=== PATIENT | male | born 1965 | race Caucasian/White ===

== ENCOUNTER 2021-08-30 11:53 | Inpatient (IN) ==
[2021-08-30] MEDS ORDERED: ALBUT/IPRATROP 3MG/0.5MG NEB 3 ML VIAL NEB STA (15:54)
[2021-08-30 16:06] LABS: Basophils # (auto) 0.01 K/uL (0-0.2); Basophils % (auto) 0.2 %; Hematocrit (blood only) 49.6 % (42-52); Hemoglobin 17.2 g/dL (14.0-18.0); Immature Granulocytes # (auto) 0.02 K/uL (0.00-0.02); Immature Granulocytes % (auto) 0.3 %; Lymphocytes # (auto) 0.92 K/uL (1.2-3.4); Lymphocytes % (auto) 15.5 %; Mean Corpuscular Hemoglobin 31.6 pg (25-34); Mean Corpuscular Hgb Conc 34.7 g/dL (32-36); Mean Platelet Volume 10.5 fL (7.4-10.4); Monocytes # (auto) 0.63 K/uL (0.11-0.59); Monocytes % (auto) 10.6 %; Neutrophils # (auto) 4.36 K/uL (1.4-6.5); Neutrophils % (auto) 73.4 %; Platelet Count 156 K/uL (130-400); RDW Coefficient of Variation 12.9 % (11.5-14.5); RDW Standard Deviation 43.1 fL (36.4-46.3); Red Blood Count 5.45 M/uL (4.7-6.1); White Blood Count 5.94 K/uL (4.8-10.8)
--- NOTE | 2021-08-30 16:19 | XRay Report ---
XR chest 1V portable CLINICAL HISTORY: Shortness of breath. Fever. COMPARISON STUDY: Chest radiograph July 10, 2015. FINDINGS: Lung volumes are diminished. There is elevation of the right hemidiaphragm. No pneumothorax or pleural effusion is noted. There is interstitial thickening and patchy bilateral airspace opaciti es. Cardiac size is at the upper limits of normal. There is no evidence for pulmonary edema. IMPRESSION: Patchy bilateral airspace opacities and interstitial thickening. The findings favor an i nfectious process such as viral pneumonia. Radiographic follow-up to ensure resolution is recommended . ACT 112: Negative or not required by law. Electronically signed by: Adis Duran M.D. 08/30/2021 4:18 PM
[2021-08-30 16:24] LABS: Alanine Aminotransferase 122 U/L (12-78); Albumin Level 3.7 gm/dl (3.4-5.0); Aspartate Aminotransferase 82 U/L (15-37); BUN Creatinine Ratio 14.1 (10-20); Blood Urea Nitrogen 17 mg/dl (7-18); Calcium 8.9 mg/dl (8.5-10.1); Carbon Dioxide 29 mmol/L (21-32); Chloride 97 mmol/L (98-107); Creatinine Clr Calc Pharmacy 90.5 ml/min; Est GFR (African American) 74.9 ml/min; Est GFR (Non-African American) 64.6 ml/min; Glucose 123 mg/dl (70-99); Potassium 3.7 mmol/L (3.5-5.1); Sodium 132 mmol/L (136-145)
[2021-08-30 16:28] LABS: Albumin Globulin Ratio 0.9 (0.9-2); Alkaline Phosphatase 61 U/L (45-117); Bilirubin,Total 0.9 mg/dl (0.2-1); Globulin 4.3 gm/dl (2.5-4.0); Troponin I < 0.015 ng/ml (0-0.045)
--- NOTE | 2021-08-30 16:40 | Emergency Department Note ---
Impression & Plan Acute hypoxemic respiratory failure due to COVID-19, Pneumonia due to 2019-nCoV ED Provider Note NAME: IAM WATSON AGE: 56 SEX: M : 1965 ARRIVES VIA: Walk-In INFORMANT: Patient, ED PROVIDER(S): Gregorio Wren MD Chief Complaint: Cough, fevers chills headache malaise HPI: Patient does present with the above complaints which he states began last week but seem to become progressively worse over the weekend and into this week. The patient has been try to take [id number] medications but without significant relief in symptoms. The patient will have significant coughing fits because of some chest discomfort. The patient denies any prior heart or lung history. The patient is not vaccinated for Covid or flu. The patient does not smoke. The patient denies any known sick contacts or recent travel. Patient denies any history of DVT or PE. Patient has had decreased taste. Patient has had decreased p.o. intake and does feel somewhat dehydrated. ROS: See HPI for pertinent positives and negatives. A total of 10 systems were reviewed and otherwise negative. Past medical history: See below Surgical history: See below Social history: See below Physical Exam: GENERAL: Fatigued in appearance. Wearing glasses and a mask. EYE EXAM: Normal conjunctiva. PERRL, no anisocoria and EOM's grossly intact w/o pain. NECK: Supple, no nuchal rigidity, no adenopathy, non-tender. No signs of meningismus. LUNGS: Clear to auscultation. Normal chest wall mechanics. HEART: NSR, no MRG. ABDOMEN: Abdomen soft, non-tender, normo-active bowel sounds, no masses, no rebound or guarding. BACK: No CVA TTP. SKIN: No rashes and no bruising. UPPER EXTREMITIES: Upper extremities are grossly normal. LOWER EXTREMITIES: Grossly normal, no edema. NEURO EXAM: A&O x3, cranial nerves II-XII grossly intact, normal speech, moves all 4 extremities on command w/o issue. Differential diagnoses: Reactive airway disease, pneumonia, pneumothorax, COPD, CHF, infections, cardiac ischemia, pulmonary embolism, musculoskeletal, gastrointestinal, as well as other pathologies. Course: Patient was seen and evaluated the bedside. Full history physical exam was performed. EKG interpreted by me Normal sinus rhythm, rate of 74, normal intervals, normal axis, no ST changes or T WI. Imaging Studies: See Below Cardiac monitoring: An order was placed for continuous cardiac monitoring. The monitor shows a rate of 75 with sinus rhythm. MDM: Patient did present due to concern for shortness of breath and likely infectious symptoms. Patient has no signs or stigmata DVT on exam. Blood work was obtained along with an EKG and chest x-ray. EKG with no obvious ischemia. Troponin is negative. Chest x-ray does show likely Bilateral airspace opacities consistent with a viral type pneumonia. Patient is Covid positive. The patient did receive a DuoNeb treatment. Upon reassessment the patient was satting in the high 80s. Patient was ordered dexamethasone. I did speak the on-call hospitalist Dr. Spence. The patient's monoclonal antibody was canceled given the pending inpatient treatment. Of note the patient was seen in the C sub wait and not in a formal emergency department room due to the burden upon the department which did not have any available rooms at the time that I saw the patient. Past Med/Surg History Medical History Dental caries Generalized weakness Hyperbilirubinemia Surgical History No pertinent past surgical history Social History Smoking Status: Never smoker Preferred Language: Israeli Feels Safe at Home: Yes Immunizations: Not vaccinated for COVID-19 Allergies Allergies Allergy/AdvReac Type Severity Reaction Status Date / Time No Known Allergies Allergy Unverified 08/28/15 15:03 Results & Data (ED) Vital Signs Vital Signs - 24 hr 08/30/21 12:31 08/30/21 15:53 Temperature 37.1 C Temperature Source Oral Pulse Rate 81 Pulse Rhythm [Right Finger] Regular Pulse Strength [Right Finger] Normal Respiratory Rate 18 20 Respiratory Effort / Characteristics Non-Labored Respiratory Depth Normal Respiratory Pattern Regular Blood Pressure 147/97 H Blood Pressure [Left Arm] 155/84 H Blood Pressure Mean 113 Blood Pressure Mean [Left Arm] 107 Blood Pressure Position [Left Arm] Sitting Pulse Oximetry 91 90 Oxygen Delivery Method Room Air Room Air Sepsis Recent Fever Within 48 Hours No Sepsis New/Unexplained Change in Mental Status No Sepsis Action Taken by Nursing No Action Required Home Medications Current Medication List: was personally reviewed by me Laboratory Data Attestation: I reviewed the patient's lab results. Result diagrams: 08/30/21 15:52 08/30/21 15:52 Lab Results 08/30/21 08/30/21 08/30/21 Range/Units 15:52 15:52 15:52 WBC 5.94 (4.8-10.8) K/uL RBC 5.45 (4.7-6.1) M/uL Hgb 17.2 (14.0-18.0) g/dL Hct 49.6 (42-52) % MCV 91.0 (80-100) fL MCH 31.6 (25-34) pg MCHC 34.7 (32-36) g/dL RDW Std Deviation 43.1 (36.4-46.3) fL RDW Coeff of Scooby 12.9 (11.5-14.5) % Plt Count 156 (130-400) K/uL MPV 10.5 H (7.4-10.4) fL Immature Gran % (Auto) 0.3 % Neut % (Auto) 73.4 % Lymph % (Auto) 15.5 % Glascock % (Auto) 10.6 % Eos % (Auto) 0.0 % Baso % (Auto) 0.2 % Neut # (Auto) 4.36 (1.4-6.5) K/uL Lymph # (Auto) 0.92 L (1.2-3.4) K/uL Glascock # (Auto) 0.63 H (0.11-0.59) K/uL Eos # (Auto) 0.00 (0-0.5) K/uL Baso # (Auto) 0.01 (0-0.2) K/uL Immature Gran # (Auto) 0.02 (0.00-0.02) K/uL Sodium 132 L (136-145) mmol/L Potassium 3.7 (3.5-5.1) mmol/L Chloride 97 L (98-107) mmol/L Carbon Dioxide 29 (21-32) mmol/L Anion Gap 6.0 (3-11) BUN 17 (7-18) mg/dl Creatinine 1.24 (0.6-1.4) mg/dl Est Cr Clr Drug Dosing 90.5 ml/min Est GFR ( Amer) 74.9 ml/min Est GFR (Non-Af Amer) 64.6 ml/min BUN/Creatinine Ratio 14.1 (10-20) Glucose 123 H (70-99) mg/dl Calcium 8.9 (8.5-10.1) mg/dl Total Bilirubin 0.9 (0.2-1) mg/dl AST 82 H (15-37) U/L ALT 122 H (12-78) U/L Alkaline Phosphatase 61 (45-117) U/L Troponin I < 0.015 (0-0.045) ng/ml Total Protein 8.0 (6.4-8.2) gm/dl Albumin 3.7 (3.4-5.0) gm/dl Globulin 4.3 H (2.5-4.0) gm/dl Albumin/Globulin Ratio 0.9 (0.9-2) SARS-CoV-2, RNA, NAAT POSITIVE A* (NEGATIVE) Administered Medications Discontinued Medications Albuterol (Albut/Ipratrop 3mg/0.5mg Neb 3 Ml Vial) 3 ml NEB NOW STA Stop: 08/30/21 15:55 Last Admin: 08/30/21 16:03 Dose: 3 ml Documented by: [id number] Imaging Data Radiologist's Impression: Chest X-Ray 08/30/21 15:43 XR chest 1V portable CLINICAL HISTORY: Shortness of breath. Fever. COMPARISON STUDY: Chest radiograph July 10, 2015. FINDINGS: Lung volumes are diminished. There is elevation of the right hemidiaphragm. No pneumothorax or pleural effusion is noted. There is interstitial thickening and patchy bilateral airspace opacities. Cardiac size is at the upper limits of normal. There is no evidence for pulmonary edema. IMPRESSION: Patchy bilateral airspace opacities and interstitial thickening. The findings favor an infectious process such as viral pneumonia. Radiographic follow-up to ensure resolution is recommended. ACT 112: Negative or not required by law. Electronically signed by: Adis Duran M.D. 08/30/2021 4:18 PM Discharge Plan Visit Data Chief Complaint: Fever Stated Complaint: COVID SYMPTOMS, FEVER ED Provider: Gregorio Wren Discharge Problem: Acute hypoxemic respiratory failure due to COVID-19, Pneumonia due to 2019-nCoV Patient Disposition: Admitted As Inpatient Referrals Referrals: Tonie Mohan DO [Primary Care Provider] -
[2021-08-30] MEDS ORDERED: diphenhydrAMINE 50 MG/ML VIAL IV PRN (16:41)
[2021-08-30] MEDS ORDERED: ONDANSETRON INJ 2 MG/ML 2 ML VIAL IV PRN (16:41)
[2021-08-30] MEDS ORDERED: ACETAMINOPHEN 325 MG TAB PO PRN (16:41)
[2021-08-30] MEDS ORDERED: methylPREDNISolone 125 MG/2 ML VIAL IV PRN (16:41)
[2021-08-30] MEDS ORDERED: EPINEPHrine INJ 1 MG/ML AMP IM PRN (16:41)
[2021-08-30] MEDS ORDERED: SODIUM CHLORIDE 0.9% 1000ML 1,000 ML IV ONE (16:41)
[2021-08-30] MEDS ORDERED: STAT IV STA (16:41)
[2021-08-30] MEDS ORDERED: CASIRIVIMAB/IMDEVIMAB 1,200 MG in 0.9 % SODIUM CHLORIDE 100 ML IV ONE (16:56)
[2021-08-30] MEDS ORDERED: SODIUM CHLORIDE 0.9% 10ML FLUSH IV ONE (17:11)
[2021-08-30] MEDS ORDERED: 0.2 MICRON FILTER SET 1 EA IV ONE (17:11)
[2021-08-30] MEDS ORDERED: dexAMETHasone**PF** 10 MG/ML VIAL IV SCH (18:03)
[2021-08-30] MEDS ORDERED: dexAMETHasone**PF** 10 MG/ML VIAL IV ONE (18:03)
--- NOTE | 2021-08-30 19:32 | History & Physical Report ---
Date of Service August 30, 2021 Assessment & Plan (1) Acute hypoxemic respiratory failure due to COVID-19: Plan: Patient will be admitted to [facility] for COVID 19 Patient received monoclonal antibodies by the ER. Patient will be placed on remdesevir/dexamethasone. will check CRP in AM. Patient is on 2 liters nasal cannula placed on lovenox. History of Present Illness Primary Care Provider: Tonie Mohan DO 56 yo male reports feeling symptoms after returning from[place] dinner. Patient reports that he has informed of the guests of the dinner that he likely had COVID 19. Patient reports loss of taste and smell. Patient reports progressively getting more SOB. Allergies Allergy/AdvReac Type Severity Reaction Status Date / Time levofloxacin [From Levaquin] AdvReac Intermediate BAD Verified 08/30/21 21:04 HEADACHE Home Medications Medication Instructions Recorded Confirmed Type No Known Home Medications 08/30/21 08/30/21 History Past Med/Surg History Medical History Dental caries Generalized weakness Hyperbilirubinemia Surgical History No pertinent past surgical history Social History Smoking Status: Never smoker Preferred Language: Korean Feels Safe at Home: Yes Review of Systems Constitutional: + fever, + sweats and + body aches Eyes: no blind spots Ear, Nose, Mouth, Throat: no ear pain and no tinnitus Respiratory: + cough and + dyspnea Cardiovascular: no chest pain Gastrointestinal: no abdominal pain and no bloating Genitourinary: no dysuria Musculoskeletal: no back pain Integumentary: no acne Neurologic: no gait abnormality Psychiatric: no behavioral changes Endocrine: + fatigue Hematologic / Lymphatic: no easy bleeding Allergy / Immunological: no GI upset with certain foods and no lip swelling Physical Exam Constitutional: WD/WN, vitals as above Eyes: PERRL, conjunctivae normal, anicteric sclerae ENMT: external ear and nose normal, oropharynx normal Neck: trachea midline, no thyromegaly Respiratory: normal respiratory effort, lungs clear to auscultation Cardiovascular: RRR, no murmur, no edema Gastrointestinal (Abdomen): normal bowel sounds, soft, nontender, no hepa tosplenomegaly Skin: no rashes, warm and dry Neurologic: PERRL, EOMI, accommodation nl, no face palsy, no dysarthria Psychiatric: A+Ox3, euthymic affect Lymphatic: no cervical or axillary lymphadenopathy Results & Data Results & Data ([facility] [place]) Vital Signs (Past 12 Hours) Vital Signs Temp Pulse Resp BP BP Pulse Ox 08/30/21 15:53 20 155/84 H 90 08/30/21 12:31 37.1 C 81 18 147/97 H 91 PG Care Time/CCT Total # of Minutes Spent Total Time Spent with Patient: Total time spent is greater than 50% in coordination of care (as documented) at patient's floor/unit and/or counseling patient: Coding Level of Care Code 94086 Initial Inpt Care Lvl 3 Diagnoses Acute hypoxemic respiratory failure due to COVID-19 U07.1; J96.01
[2021-08-30] MEDS ORDERED: ENOXAPARIN 0.5 MG/KG SQ SCH (23:45)
[2021-08-31] MEDS ORDERED: REMDESIVIR 200 MG in SODIUM CHLORIDE 0.9% 210 ML IV ONE
[2021-08-31] MEDS: ENOXAPARIN 80 MG/0.8 ML SYR SQ SCH ×3 (00:05→21:21)
[2021-08-31] MEDS: SODIUM CHLORIDE 0.9% 10ML FLUSH IV SCH ×2 (02:32→21:46)
[2021-08-31 06:13] LABS: Hematocrit (blood only) 44.2 % (42-52); Hemoglobin 15.2 g/dL (14.0-18.0); Mean Corpuscular Hemoglobin 31.1 pg (25-34); Mean Corpuscular Hgb Conc 34.4 g/dL (32-36); Mean Corpuscular Volume 90.4 fL (80-100); Mean Platelet Volume 10.6 fL (7.4-10.4); Platelet Count 164 K/uL (130-400); RDW Coefficient of Variation 12.9 % (11.5-14.5); RDW Standard Deviation 42.4 fL (36.4-46.3); Red Blood Count 4.89 M/uL (4.7-6.1); White Blood Count 4.95 K/uL (4.8-10.8)
[2021-08-31 06:46] LABS: Albumin Level 2.9 gm/dl (3.4-5.0); BUN Creatinine Ratio 15.7 (10-20); Bilirubin Direct 0.2 mg/dl (0-0.2); Calcium 8.2 mg/dl (8.5-10.1); Creatinine Clr Calc Pharmacy 103.9 ml/min; Est GFR (African American) 88.5 ml/min; Est GFR (Non-African American) 76.3 ml/min; Potassium 3.7 mmol/L (3.5-5.1)
[2021-08-31 06:50] LABS: Bilirubin,Total 0.7 mg/dl (0.2-1); C Reactive Protein 1.65 mg/dl (0-0.29); Total Protein 6.8 gm/dl (6.4-8.2)
[2021-08-31] MEDS: dexAMETHasone 6 MG in SYRINGE 0 ML IV SCH (08:44)
--- NOTE | 2021-08-31 10:24 | Electrocardiogram Report ---
Test Reason : Blood Pressure : / mmHG Vent. Rate : 074 BPM Atrial Rate : 074 BPM P-R Int : 174 ms QRS Dur : 084 ms QT Int : 362 ms P-R-T Axes : 029 017 036 degrees QTc Int : 401 ms Normal sinus rhythm Normal ECG When compared with ECG of 29-JUN-2015 18:55, No significant change was found Confirmed by Jorge A Mchugh ([id number]) on 08/31/2021 10:24:02 AM Referred By: REFERRED SELF Confirmed By:Kvng Mchugh
--- NOTE | 2021-08-31 14:17 | Hospitalist Progress Note ---
Date of Service August 31, 2021 Assessment & Plan (1) Acute hypoxemic respiratory failure due to COVID-19: Plan: Patient will be admitted to [facility] for COVID 19 Patient did not receive monoclonal antibodies by the ER. Patient will be placed on remdesevir/dexamethasone. will check CRP in AM. Patient is on 2 liters nasal cannula placed on lovenox. On 08/31 Patient is now on 6 liters. recommend proning Later in the day, patient became more hypoxic and had to be transisitioned to high flow oxygen. (2) Pneumonia due to 2019-nCoV: Plan: as above, Admission and Anticipated Discharge Date Admission Date: August 30, 2021 Subjective Patient reports feeling comfortable in bed. He has not proned, but reports he will try. He states that he feels more SOB when he walks towards the bathroom. This was accomapnied by a nonproductive cough. Review of Systems Review of Systems: All systems reviewed & are unremarkable except as noted in HPI & below Physical Exam Constitutional: WD/WN, vitals as above Eyes: PERRL, conjunctivae normal, anicteric sclerae ENMT: external ear and nose normal, oropharynx normal Neck: trachea midline, no thyromegaly Respiratory: normal respiratory effort, lungs clear to auscultation Cardiovascular: RRR, no murmur, no edema Gastrointestinal (Abdomen): normal bowel sounds, soft, nontender, no hepatosplenomegaly Skin: no rashes, warm and dry Neurologic: PERRL, EOMI, accommodation nl, no face palsy, no dysarthria Psychiatric: A+Ox3, euthymic affect Lymphatic: no cervical or axillary lymphadenopathy Results & Data Results & Data ([facility]) Vital Signs (Past 12 Hours) Vital Signs Pulse Resp BP Pulse Ox 08/31/21 10:52 68 20 110/65 91 08/31/21 06:30 68 26 H 140/78 90 08/31/21 03:00 72 32 H 121/75 92 PG Care Time/CCT Total # of Minutes Spent Total Time Spent with Patient: Total time spent is greater than 50% in coordination of care (as documented) at patient's floor/unit and/or counseling patient: Coding Level of Care Code 40025 Subseq Hosp Care Lvl 3 Diagnoses Acute hypoxemic respiratory failure due to COVID-19 U07.1; J96.01 Pneumonia due to 2019-nCoV U07.1; J12.82 Time Spent (min) 36
[2021-08-31] MEDS: REMDESIVIR 100 MG in SODIUM CHLORIDE 0.9% 230 ML IV SCH (20:14)
[2021-09-01] MEDS: dexAMETHasone 6 MG in SYRINGE 0 ML IV SCH (08:43)
[2021-09-01] MEDS: ENOXAPARIN 80 MG/0.8 ML SYR SQ SCH ×2 (09:48→20:30)
[2021-09-01 10:22] LABS: Hemoglobin 15.1 g/dL (14.0-18.0); Mean Corpuscular Hgb Conc 33.6 g/dL (32-36); Mean Corpuscular Volume 92.4 fL (80-100); Mean Platelet Volume 10.7 fL (7.4-10.4); Platelet Count 204 K/uL (130-400); RDW Coefficient of Variation 12.9 % (11.5-14.5); RDW Standard Deviation 43.6 fL (36.4-46.3); Red Blood Count 4.87 M/uL (4.7-6.1); White Blood Count 9.09 K/uL (4.8-10.8)
[2021-09-01 10:50] LABS: BUN Creatinine Ratio 20.7 (10-20); C Reactive Protein 0.73 mg/dl (0-0.29); Calcium 8.5 mg/dl (8.5-10.1); Creatinine Clr Calc Pharmacy 99.3 ml/min; Est GFR (African American) 83.8 ml/min; Est GFR (Non-African American) 72.3 ml/min; Potassium 3.9 mmol/L (3.5-5.1)
--- NOTE | 2021-09-01 15:23 | Hospitalist Progress Note ---
Date of Service September 01, 2021 Assessment & Plan (1) Acute hypoxemic respiratory failure due to COVID-19: Plan: Acute anoxic respiratory failure 2/2 COVID-19 Tolerating proning Increased requirements to high flow, currently at 50 L WBC normal, hemoglobin normal, platelet count normal, troponin negative CXR: Patchy bilateral airspace opacities and interstitial thickening consistent with viral pneumonia CRP downtrending, does not meet criteria for baricitinib Continue dexamethasone 6 mg daily, Continue remdesivir started 08/31 AST 80, ALT 99 Continue weight-based Lovenox DVT prophylaxis Continue to follow No chronic home medications (2) Pneumonia due to 2019-nCoV: Plan: as above, Admission and Anticipated Discharge Date Admission Date: August 30, 2021 Subjective Patient lying in bed, no acute distress. Reports he feels somewhat comfortable, but remains on high flow nasal cannula. Tolerating proning intermittently. Short of breath with ambulation. Increase to high flow nasal cannula yesterday. Continues to require. Was admitted on remdesivir/dexamethasone.CRP 0.73, downtrending. Review of Systems Review of Systems: 10 point review systems negative except as previously noted and as documented in HPI Physical Exam Physical Exam: General: A&Ox3. NAD. Cooperative. HEENT: Atraumatic, normocephalic. Pulm: Moderate air movement, diffuse scattered crackles without rales or wheezes. Cardiac: RRR, -mrg. Radial pulses intact and symmetrical. Abdominal: Nontender, nondistended, soft. BS present. Results & Data Results & Data ([facility]) Vital Signs (Past 12 Hours) Vital Signs Temp Pulse Pulse Resp BP Pulse Ox 09/01/21 14:31 68 20 90 09/01/21 11:26 37.5 C 63 20 116/72 89 L 09/01/21 11:05 62 22 91 09/01/21 08:45 59 L 09/01/21 08:26 37.7 C H 60 20 119/71 91 09/01/21 07:45 84 26 H 89 L 09/01/21 03:51 37.3 C 60 19 91 PG Care Time/CCT Total # of Minutes Spent Total Time Spent with Patient: Total time spent is greater than 50% in coordination of care (as documented) at patient's floor/unit and/or counseling patient: Coding Level of Care Code 28792 Subseq Hosp Care Lvl 3 Diagnoses Acute hypoxemic respiratory failure due to COVID-19 U07.1; J96.01 Pneumonia due to 2019-nCoV U07.1; J12.82
[2021-09-01] MEDS: REMDESIVIR 100 MG in SODIUM CHLORIDE 0.9% 230 ML IV SCH (19:36)
[2021-09-01] MEDS: SODIUM CHLORIDE 0.9% 10ML FLUSH IV SCH (20:28)
[2021-09-02] MEDS ORDERED: COUGH DROP (SUGAR FREE) LOZ 24 LOZ/1 BOX BUCCAL PRN (03:01)
[2021-09-02] MEDS ORDERED: COUGH DROP (SUGAR FREE) LOZ 24 LOZ/1 BOX BUCCAL ONE (03:04)
[2021-09-02] MEDS: dexAMETHasone 6 MG in SYRINGE 0 ML IV SCH (08:27)
[2021-09-02] MEDS: ENOXAPARIN 80 MG/0.8 ML SYR SQ SCH ×2 (08:28→20:09)
[2021-09-02] MEDS ORDERED: SODIUM CHLORIDE 0.65% NA SOLN 45 ML (OCEAN) PRN (08:34)
[2021-09-02] MEDS ORDERED: SODIUM CHLORIDE 0.65% NA SOLN 45 ML (OCEAN) ONE (08:39)
[2021-09-02] MEDS ORDERED: FUROSEMIDE 40 MG/4 ML VIAL IV ONE (10:32)
--- NOTE | 2021-09-02 10:37 | Hospitalist Progress Note ---
Date of Service September 02, 2021 Assessment & Plan (1) Acute hypoxemic respiratory failure due to COVID-19: Plan: Worsening Acute hypoxic respiratory failure 2/2 COVID-19 -patient with progressively worsening oxygenation, throughout morning has required up titration of high flow nasal cannula to 60 L at 100%, ultimately progressing to CPAP 10mm maintaining sat of approximately 88%. Patient had been somewhat compliant with proning, continue to be hypoxic following movement to PCU status and CPAP. Extended discussion with patient regarding course and wishes, patient reports he would want a breathing tube/intubation if needed. If he is unable to make decisions for himself he would want his brother Orion Rutledge available at [phone] to be surrogate decision maker. He would also like his business support assistant Alvarez Saucedo updated at [phone], permission is given to relay medical information and updates to these contacts. Remains tachypneic, anticipate need for ETT, critical care team notified and aware - Unvaccinated -Continue Lasix 40mg IV. Creatinine remains normal. WBC normal, hemoglobin normal, platelet count normal, troponin negative ABG 7.49, PCO2 35, PO2 63 on 50 L at 100%, HCO3 26 CXR: Patchy bilateral airspace opacities and interstitial thickening consistent with viral pneumonia on admit - Repeat CXR: With progressive patchy opacities consistent with worsening viral pneumonia. CVA without opacity. CRP previously downtrending, did not meet criteria for baricitinib. CRP remains less than 1 Decadron increased from 6 mg daily to 10 mg daily Continue remdesivir started 08/31 AST 80, ALT 99 following initiation of remdesivir. Repeat up trended to 109/167. <3x ULN. - Pt on weight based COVID DVT ppx without missed/refused doses No chronic home medications. Pt denies any chronic medical hx/problems/cardiac disease/pulmonary disease/DM (2) Pneumonia due to 2019-nCoV: Plan: as above, Admission and Anticipated Discharge Date Admission Date: August 30, 2021 Subjective Progressive dyspnea/hypoxia. Pt laying on back at assessment. Proned. Pt with hypoxia on 100%FiO2 HFNC @ 50. Moving to 2E unit, capacity up to 60L. Lasix IVx given. Sx onset ~10 days ago. Nonvacc. Reports he continues to be short of breath and feel lightheaded/dizzy all of which is worsened with exertion. Denies chest pain, chest pressure, extremity pain, abdominal pain, nausea/vomiting. Discussed worsening Covid, patient would want a breathing tube if his breathing would continue to worsen. Pt would like the followin gabepdated in an emergency. OK per pt to share information with the following. Brother orion would be surrogate decision maker. Lorne Saucedo [phone] ([employer]) and Brother Orion Rutledge [phone]. Review of Systems Review of Systems: Patient endorses shortness of breath worsened with exertion. 10 point review of systems otherwise negative except as noted otherwise/in subjective. Physical Exam Physical Exam: General: A&Ox3. NAD. Cooperative. HEENT: Atraumatic, normocephalic. Visual acuity and hearing grossly intact. Pulm: Tachypneic. Diffusely coarse, without rales. Increased work of breathing. Cardiac: RRR, -mrg. Radial pulses intact and symmetrical. Abdominal: Obese, nontender, nondistended, soft. BS present. Extremities: Warm, moist. Moving all extremities equally. Results & Data Results & Data ([facility]) Vital Signs (Past 12 Hours) Vital Signs Temp Pulse Pulse Resp BP Pulse Ox 09/02/21 10:17 71 22 87 L 09/02/21 09:27 69 129/75 86 L 09/02/21 08:13 36.8 C 65 22 121/75 88 L 09/02/21 07:52 93 H 20 87 L 09/02/21 07:40 61 09/02/21 05:20 62 22 86 L 09/02/21 03:46 112 H 30 H 89 L 09/02/21 03:07 37.6 C H 62 18 116/85 87 L 09/02/21 00:29 68 20 89 L 09/02/21 00:25 62 09/01/21 23:28 37.4 C 63 18 110/67 88 L PG Care Time/CCT Total # of Minutes Spent Total Time Spent with Patient: Total time spent is greater than 50% in coordination of care (as documented) at patient's floor/unit and/or counseling patient: Coding Level of Care Code 26336 Subseq Hosp Care Lvl 3 Diagnoses Acute hypoxemic respiratory failure due to COVID-19 U07.1; J96.01 Pneumonia due to 2019-nCoV U07.1; J12.82
[2021-09-02] MEDS ORDERED: dexAMETHasone 4 MG in SYRINGE 0 ML IV ONE (11:15)
[2021-09-02 11:58] LABS: Creatinine Clr Calc Pharmacy 124.6 ml/min; Est GFR (African American) 110.3 ml/min; Est GFR (Non-African American) 95.1 ml/min
[2021-09-02 12:17] LABS: Allen Test Pos (Pos); Base Excess ABG 3.1 mEq/L (-9-1.8); HCO3 ABG 26 mmol/L (19-24); PCO2 ABG 35 mmHg (35-46); PO2 ABG 63 mmHg (80-95); pH ABG 7.49 (7.35-7.45)
--- NOTE | 2021-09-02 12:22 | XRay Report ---
XR chest 1V portable CLINICAL HISTORY: progressive hypoxia COMPARISON STUDY: Chest radiograph August 30, 2021. FINDINGS: Elevation of the right hemidiaphragm is again noted. Lung volumes are diminished. There has been progression of bilateral airspace opacities since prior examination. These are most confluent w ithin the right upper and left lower lungs. There is no evidence for pulmonary edema. IMPRESSION: Progression of bilateral airspace opacities consistent with viral pneumonia. ACT 112: Negative or not required by law. Electronically signed by: Adis Duran M.D. 09/02/2021 12:21 PM
[2021-09-02] MEDS: REMDESIVIR 100 MG in SODIUM CHLORIDE 0.9% 230 ML IV SCH (20:09)
[2021-09-02] MEDS: SODIUM CHLORIDE 0.9% 10ML FLUSH IV SCH (20:09)
[2021-09-03 06:57] LABS: Creatinine Clr Calc Pharmacy 118.1 ml/min; Est GFR (African American) 103.3 ml/min; Est GFR (Non-African American) 89.1 ml/min
[2021-09-03] MEDS: ENOXAPARIN 80 MG/0.8 ML SYR SQ SCH ×2 (07:54→19:28)
[2021-09-03] MEDS ORDERED: dexAMETHasone 10 MG in SYRINGE 0 ML IV SCH (09:00)
[2021-09-03] MEDS ORDERED: FUROSEMIDE INJ 20 MG/2 ML VIAL IV ONE (09:35)
[2021-09-03] MEDS ORDERED: PROPOFOL IV EMULSION 10 MG/ML 20 ML VIAL IV ONE (09:52)
[2021-09-03] MEDS ORDERED: ROCURONIUM BROMIDE 10 MG/ML 5 ML VIAL IV ONE ×2 (09:52→09:56)
[2021-09-03] MEDS ORDERED: MIDAZOLAM HCL 5 MG/ML VIAL ONE (09:53)
[2021-09-03] MEDS ORDERED: PROPOFOL IV EMULSION 10 MG/ML 100 ML VIAL IV ONE (09:59)
[2021-09-03] MEDS ORDERED: STAT IV Infusion **Titration per Protocol STA ×2 (11:03→11:06)
[2021-09-03] MEDS ORDERED: PROPOFOL BOLUS FROM BAG IV PRN (11:03)
[2021-09-03] MEDS ORDERED: MIDAZOLAM BOLUS FROM BAG IV PRN (11:03)
[2021-09-03] MEDS ORDERED: CISATRACURIUM BESYLATE IV SOLN 2 MG/ML 10 ML VIAL IV STA (11:06)
[2021-09-03] MEDS: MIDAZOLAM HCL 125 MG/250 ML BAG IV SCH (11:26)
[2021-09-03] MEDS: fentaNYL DRIP 1,250 MCG/250 ML BAG IV SCH (11:26)
[2021-09-03] MEDS: propofoL 1,000 MG/100 ML VIAL IV SCH ×5 (11:26→23:09)
[2021-09-03] MEDS: ARTIFICIAL TEARS OP OINT 3.5 GM TUBE OP SCH ×4 (11:29→23:09)
--- NOTE | 2021-09-03 11:33 | XRay Report ---
XR chest 1V portable CLINICAL HISTORY: intubation, central line, Og tube placement. COMPARISON STUDY: No previous studies for comparison. TECHNIQUE: 09/02/2021 FINDINGS: Single frontal view of the chest demonstrates the cardiomediastinal silhouette to be within normal li mits. As been interval placement of an endotracheal tube with its tip approximately 7.1 cm above the flaca. Just below the thoracic inlet and probably should be advanced at least 2 cm. Right jugular ca theter is in place with its tip in the distal SVC. There is no evidence for pneumothorax. OG tube has been placed with its tip extending into the gastric fundus. Compared to the previous examination, bilateral interstitial and alveolar opacities are again seen ch aracteristic of a viral type pneumonitis and probable Covid pneumonia. There is no evidence for pleur al effusion. There is no evidence for vascular congestion. There is no acute osseous pathology. IMPRESSION: 1. Tip of endotracheal tube 7.1 cm above the flaca and should probably be advanced at least 2 cm. 2. Tip of right jugular catheter in right atrium with no evidence for pneumothorax. 3. Tip of OG tube extends into the gastric fundus and could also be advanced further. 4. Bilateral interstitial and alveolar opacities are again seen characteristic of viral type pneumoni tis and Covid pneumonia. ACT 112: Negative or not required by law. Electronically signed by: Aron Felix M.D. 09/03/2021 11:31 AM
--- NOTE | 2021-09-03 11:40 | Critical Care Consultation ---
Date of Consultation September 03, 2021 Assessment & Plan (1) Acute hypoxemic respiratory failure due to COVID-19: (2) Pneumonia due to 2019-nCoV: (3) ARDS (adult respiratory distress syndrome): Impression: 56-year-old unvaccinated male with rapidly progressive COVID- 19 pneumonitis/ARDS. Intubated 09/03/2021. Recommendations: 1. Neuro: [place] aggressive sedation protocol with fentanyl Versed and propofol. Neuromuscular blockade for now. 2. Cardiovascular: Hemodynamically stable. Will use norepinephrine on an as- needed basis to maintain systolic blood pressures with sedation 3. Pulmonary: ARDS secondary to novel coronavirus. Failed high flow and noninvasive positive pressure ventilation now intubated. Arginate ventilatory strategy. Neuromuscular blockade for now. Will obtain CT angiogram to exclude PE given that his degree of hypoxemia appears to be out of proportion to the findings on his x-ray. We will check a BNP as well as procalcitonin and respiratory sputum culture. Patient's body mass index and age would likely exclude him for ECMO. Facilities do not have beds available so will defer contacting tertiary facilities as I think they will have little to offer him at this point time. May benefit from proning but will await CT scan prior to making a decision. 4. GI: N.p.o. for now. GI prophylaxis. 5. Renal: Dasilva catheter in place. Await repeat electrolytes post intubation. 6. ID: Afebrile. Continue dexamethasone 6 mg daily for Covid. At risk for secondary infections 7. Endocrine: Glycemic control per ICU protocol 8. Heme-onc: Follow-up lab studies pending. 50 minutes critical care time spent evaluating and managing life-threatening illness including discussions with anesthesia, bedside critical care nurse, and patient as well as primary admitting service. No family is immediately available and will defer to hospitalist service to update them. History of Present Illness Attending Physician: David Dunn MD History of Present Illness Asked by hospitalist to assist in evaluation management this patient with progressive hypoxemic respiratory failure secondary to Covid pneumonitis. History is obtained from reviewed electronic medical record as well as discussion with the patient. Patient is a 56-year-old nonvaccinated male who presented to the emergency room 08/30/2021 with complaints of shortness of breath. He was found to be hypoxemic and was placed on 2 L nasal cannula. He was treated with dexamethasone remdesivir. His oxygenation worsened over the next 24 hours transitioning to high flow and then eventually trying self proning. He was then transitioned to BiPAP. This morning we were unable to keep his oxygen saturations above 88% despite aggressive therapy and the patient was tachypneic with increased work of breathing. I met with the patient at bedside. We discussed intubation tracheostomy and PEG tube placement. He is agreeable to proceed. His CRP was never elevated enough to qualify for additional immune suppression. Procalcitonin or BMP were not assessed. Allergies Allergy/AdvReac Type Severity Reaction Status Date / Time levofloxacin [From Levaquin] AdvReac Intermediate BAD Verified 08/30/21 21:04 HEADACHE Home Medications Medication Instructions Recorded Confirmed Type No Known Home Medications 08/30/21 08/30/21 History Patient History Medical History Dental caries Generalized weakness Hyperbilirubinemia Surgical History No pertinent past surgical history Social History Smoking Status: Never smoker Second Hand Exposure: No; Do You Dip or Chew Tobacco: No; Tobacco Cessation Education Requested by Patient: No Hx Alcohol Use: No Hx Substance Use: No Preferred Language: Zambian Communication Ability: Effective Site Leader Required: No Beliefs That Will Affect Care: None Current Living Situation: Alone Other Information That Helps Us Care for You: No Feels Safe at Home: Yes Safety Concerns: Feels Safe At This Time Assistive Devices: Oxygen - Continuous Review of Systems Review of Systems: Unable to complete full review of systems secondary to acuity of the patient's illness. Physical Exam Constitutional: + acute distress and + ill appearing Neck: trachea midline, no thyromegaly Respiratory: + respiratory distress, + labored breathing, + uses accessory muscles and + tachypneic Auscultation: + crackles and + wheezes Cardiovascular: RRR, no murmur, no edema Gastrointestinal (Abdomen): normal bowel sounds, soft, nontender, no hepatosplenomegaly Musculoskeletal: Extremities: extremities normal to inspection Skin: no rashes, warm and dry Neurologic: Nonfocal exam Lymphatic: no cervical lymphadenopathy Results & Data Results & Data ([facility]) Vital Signs (Past 12 Hours) Vital Signs Temp Pulse Pulse Resp BP BP Pulse Ox 09/03/21 07:55 77 28 H 136/81 85 L 09/03/21 03:45 72 33 H 90 09/03/21 03:36 36.7 C 72 32 H 120/78 88 L 09/02/21 23:38 36.6 C 70 22 134/83 89 L Critical Care Results & Data Vital Signs (Past 12 Hours) Vital Signs Temp Pulse Pulse Resp BP BP Pulse Ox 09/03/21 07:55 77 28 H 136/81 85 L 09/03/21 03:45 72 33 H 90 09/03/21 03:36 36.7 C 72 32 H 120/78 88 L 09/02/21 23:38 36.6 C 70 22 134/83 89 L Lab & Micro Results (Past 24 Hours) No Data to Display Creatinine 0.95 mg/dl (0.6-1.4) 09/03/21 Estimated GFR ( Amer) 103.3 ml/min 09/03/21 Estimated GFR (Non-Af Amer) 89.1 ml/min 09/03/21 AST 102 U/L (15-37) H 09/03/21 ALT 175 (12-78) H 09/03/21 Blood Gas Barometric Pressure 738.1 mm/Hg 09/02/21 11:55 09/02/21 Arterial Blood pH 7.49 (7.35-7.45) H 09/02/21 11:55 09/02/21 Arterial Blood Partial Pressure CO2 35 mmHg (35-46) 09/02/21 11:55 09/02/21 Arterial Blood Partial Pressure O2 63 mmHg (80-95) L 09/02/21 11:55 09/02/21 Arterial Blood HCO3 26 mmol/L (19-24) H 09/02/21 11:55 09/02/21 Arterial Blood Base Excess 3.1 mEq/L (-9-1.8) H 09/02/21 11:55 09/02/21 Arterial Blood Oxygen Saturation 94.0 % (90-95) 09/02/21 11:55 09/02/21 Blood Gas Oxygen Given 50 09/02/21 11:55 09/02/21 Marcelo Test Pos (Pos) 09/02/21 11:55 09/02/21 Blood Gas Barometric Pressure 738.1 mm/Hg 09/02/21 11:55 09/02/21 Diagnostic Findings (Past 24 Hours) Chest X-Ray 09/02/21 10:31 XR chest 1V portable CLINICAL HISTORY: progressive hypoxia COMPARISON STUDY: Chest radiograph August 30, 2021. FINDINGS: Elevation of the right hemidiaphragm is again noted. Lung volumes are diminished. There has been progression of bilateral airspace opacities since prior examination. These are most confluent within the right upper and left lower lungs. There is no evidence for pulmonary edema. IMPRESSION: Progression of bilateral airspace opacities consistent with viral pneumonia. ACT 112: Negative or not required by law. Electronically signed by: Adis Duran M.D. 09/02/2021 12:21 PM I & O Totals 24 Hours 09/02/21 09/03/21 09/04/21 06:59 06:59 06:59 Intake Total 810 / 810 250 / 250 Output Total 2651 / 2651 Balance 810 / 810 -2401 / -2401 Cumulative 08/30/21 11:53 thru 09/03/21 05:47 Intake Total 2960 Output Total 2651 Balance 309 RT Ventilator Mngmt (Last Documented) Ventilator Ordered Settings Respiratory Rate 28 09/03/21 07:55 Fraction of Inspired Oxygen 100 09/03/21 07:55 Ventilator - PT Measurements Respiratory Rate 28 Coding Level of Care Code Critical Care 1st 30-74 mins Diagnoses Acute hypoxemic respiratory failure due to COVID-19 U07.1; J96.01 Pneumonia due to 2019-nCoV U07.1; J12.82 ARDS (adult respiratory distress syndrome) J80 Time Spent (min) 50
--- NOTE | 2021-09-03 11:41 | Anesthesia Procedure Note ---
Anesthesia Procedure Note Arterial Line Note Date of procedure: 09/03/21 Consent: Risk / Benefits Reviewed With: PT / POA / Parent / Guardian, Accepts Plan and All Questions Answered Monitors attached: Blood Pressure, CO2, EKG and Pulse Oximetry Oxygen delivery method: ETT Time out completed: Yes Premedication: Midazolam (mg) and Propofol (mg) Laterality: Left Location: Radial Equipment/Supplies: Cap, Mask, Sterile gloves and Sterile procedures used Skin prep: Chloraprep Ultrasound used: No Marcelo test: Negative Attempts: 1 Post-Procedure: Pt hemodynamically stable, Pt tolerates well and No complication Central Line Note Date of procedure: 09/03/21 Indication: Central intravenous access Consent: Risk / Benefits Reviewed With: PT / POA / Parent / Guardian, Accepts Plan and All Questions Answered Monitors attached: Blood Pressure, CO2, EKG and Pulse Oximetry Oxygen delivery method: ETT Time out completed: Yes Premedication: Midazolam (mg) and Propofol (mg) Laterality: Right Location: Internal Jugular Surgical Prep: Hand hygeine: Alcohol based hand rub Equipment/Supplies: Cap, Mask, Sterile gown, Sterile gloves, Sterile drapes and Sterile procedures used Skin prep: Chloraprep Ultrasound Guidance: Ultrasound used: Yes US equipment and supplies: Sterile Gel and Sterile Probe Cover Central line lumen: Triple Catheter sutured at: CM (20) Attempts: 1 Post-Procedure: Pt hemodynamically stable, Pt tolerates well, No complication and Post placement CXR ordered Intubation Note Date of procedure: 09/03/21 Indication for intubation: Failure to oxygenate Consent: Risk / Benefits Reviewed With: PT / POA / Parent / Guardian, Accepts Plan, Informed Consent Obtained and All Questions Answered Monitors attached: Blood Pressure, CO2, EKG and Pulse Oximetry Time out completed: Yes Premedication: Midazolam (mg) and Propofol (mg) Paralytic medication: Rocuronium (mg) Intubation technique: Adequate preoxygenation and RSI View: Grade 1 Endotracheal tube: 8.0, with Stylet, Tube secured @ cm (25) and Balloon inflated Attempts: 1 Tube placement confirmation: auscultation and Positive CO2 detection Post-procedure: Pt hemodynamically stable, Pt tolerates well, No complication and Post placement CXR ordered
[2021-09-03] MEDS: CISATRACURIUM BESYLATE 40 MG in 0.9 % SODIUM CHLORIDE 80 ML IV SCH ×2 (12:19→17:14)
[2021-09-03 12:37] LABS: iSTAT Art Bld Gas pCO2 Correct 54 mmHg (35-46); iSTAT Arterial Blood Gas HCO3 31 meg/L (19-24); iSTAT Arterial Blood Gas pCO2 54 mmHg (35-46); iSTAT Arterial Blood Gas pH 7.36 (7.35-7.45); iSTAT Arterial Blood Gas pO2 65 mmHg (80-95); iSTAT Arterial Blood Gas pO2 C 66; iSTAT Carbon Dioxide 32 mmol/L (24-31); iSTAT FiO2 100 %; iSTAT Hematocrit 47 % (42-52); iSTAT Site Art Line; iSTAT Sodium 141 mmol/L (135-144)
--- NOTE | 2021-09-03 12:40 | Hospitalist Progress Note ---
Date of Service September 03, 2021 Assessment & Plan (1) Acute hypoxemic respiratory failure due to COVID-19: Plan: Worsening Acute hypoxic respiratory failure 2/2 COVID-19 -patient with progressively worsening oxygenation, throughout morning has required up titration of high flow nasal cannula to 60 L at 100%, ultimately progressing to CPAP 10mm maintaining sat of approximately 88%. Patient had been somewhat compliant with proning, continue to be hypoxic following movement to PCU status and CPAP. Extended discussion with patient regarding course and wishes, patient reports he would want a breathing tube/intubation if needed. If he is unable to make decisions for himself he would want his brother Orion Rutledge available at [phone] to be surrogate decision maker. He would also like his business line controller Alvarez Lewis updated at [phone], permission is given to relay medical information and updates to these contacts. Remains tachypneic, anticipate need for ETT, critical care team notified and aware - Unvaccinated -Tolerating Lasix, no creatinine elevation. Additional Lasix given today. WBC normal, hemoglobin normal, platelet count normal, troponin negative ABG 7.49, PCO2 35, PO2 63 on 50 L at 100%, HCO3 26 CXR: Patchy bilateral airspace opacities and interstitial thickening consistent with viral pneumonia on admit - Repeat CXR: With progressive patchy opacities consistent with worsening viral pneumonia. CVA without opacity. CRP previously downtrending, did not meet criteria for baricitinib. CRP remains less than 1 Patient desats easily when on his back, oxygenation improves and lateral recumbent and prone position significantly, although he is on CPAP at 100% oxygen and maintaining borderline sats. If he further worsens will require ETT. Respiratory/director of kids aware. Decadron increased from 6 mg daily to 10 mg daily 09/03, continue 10 mg dose Continue remdesivir started 08/31 AST 80, ALT 99 following initiation of remdesivir. Repeat uptrended slightly, remains <3x ULN. - Pt on weight based COVID DVT ppx without missed/refused doses No chronic home medications. Pt denies any chronic medical hx/problems/cardiac disease/pulmonary disease/DM Update attempted to give to brother, lives in [place] and is several hours behind the time zone. Unable to reach by phone today or yesterday, will continue to reattempt today. (2) Pneumonia due to 2019-nCoV: Plan: as above, Admission and Anticipated Discharge Date Admission Date: August 30, 2021 Subjective Remains fatigued, tachypneic. Currently tolerating CPAP FiO2 100. Patient with improved oxygen saturation in prone and lateral common positions, desaturates easily if moved to his back. Patient reports he feels tired, and is scared and would like to know what would be involved if he did need a breathing tube. Discussed progression of respiratory support, and what would be involved should he clinically worsen and require intubation. Patient expresses an understanding of this. He reports that he has not felt feverish or chills, just continues to feel tired and winded with shortness of breath. Denies chest pain/chest pressure. Review of Systems Review of Systems: All systems reviewed & are unremarkable except as noted in Subjective Physical Exam Physical Exam: General: A&Ox3. NAD. Cooperative. Appears fatigued, ill. HEENT: Atraumatic, normocephalic. Visual acuity and hearing grossly intact. Pulm: Tachypneic. Diffusely coarse, without rales. Increased work of breathing. Cardiac: RRR, -mrg. Radial pulses intact and symmetrical. Abdominal: Obese, nontender, nondistended, soft. BS present. Extremities: Warm, moist. Moving all extremities equally. Results & Data Results & Data ([facility]) Vital Signs (Past 12 Hours) Vital Signs Temp Pulse Pulse Resp BP BP Pulse Ox 09/03/21 07:55 77 28 H 136/81 85 L 09/03/21 03:45 72 33 H 90 09/03/21 03:36 36.7 C 72 32 H 120/78 88 L PG Care Time/CCT Total # of Minutes Spent Total Time Spent with Patient: Total time spent is greater than 50% in coordination of care (as documented) at patient's floor/unit and/or counseling patient: Coding Level of Care Code 76819 Subseq Hosp Care Lvl 3 Diagnoses Acute hypoxemic respiratory failure due to COVID-19 U07.1; J96.01 Pneumonia due to 2019-nCoV U07.1; J12.82
[2021-09-03] MEDS: SODIUM CHLORIDE 0.9% 10ML FLUSH IV SCH (19:29)
[2021-09-04] MEDS: CISATRACURIUM BESYLATE 40 MG in 0.9 % SODIUM CHLORIDE 80 ML IV SCH ×3 (01:48→16:41)
[2021-09-04] MEDS: propofoL 1,000 MG/100 ML VIAL IV SCH ×10 (01:48→21:17)
[2021-09-04] MEDS: fentaNYL DRIP 1,250 MCG/250 ML BAG IV SCH ×2 (02:56→13:44)
[2021-09-04] MEDS: ARTIFICIAL TEARS OP OINT 3.5 GM TUBE OP SCH ×5 (03:24→21:12)
[2021-09-04 04:11] LABS: iSTAT Art Bld Gas pCO2 Correct 74 mmHg (35-46); iSTAT Art Bld Gas pH Corrected 7.324 (7.35-7.45); iSTAT Arterial Blood Gas HCO3 39 meg/L (19-24); iSTAT Arterial Blood Gas pCO2 74 mmHg (35-46); iSTAT Arterial Blood Gas pH 7.32 (7.35-7.45); iSTAT Arterial Blood Gas pO2 129 mmHg (80-95); iSTAT Arterial Blood Gas pO2 C 128; iSTAT Carbon Dioxide > 40 mmol/L (24-31); iSTAT FiO2 80 %; iSTAT Hematocrit 48 % (42-52); iSTAT Hemoglobin 16.3 g/dl (14.0-18.0); iSTAT Potassium 4.6 mmol/L (3.3-5.0); iSTAT Site Art Line; iSTAT Sodium 140 mmol/L (135-144)
[2021-09-04 07:24] LABS: Basophils # (auto) 0.02 K/uL (0-0.2); Basophils % (auto) 0.2 %; Hematocrit (blood only) 49.1 % (42-52); Immature Granulocytes # (auto) 0.13 K/uL (0.00-0.02); Immature Granulocytes % (auto) 1.1 %; Lymphocytes # (auto) 0.71 K/uL (1.2-3.4); Lymphocytes % (auto) 5.8 %; Mean Corpuscular Hemoglobin 31.3 pg (25-34); Mean Corpuscular Hgb Conc 32.6 g/dL (32-36); Mean Corpuscular Volume 95.9 fL (80-100); Mean Platelet Volume 11.1 fL (7.4-10.4); Monocytes # (auto) 0.62 K/uL (0.11-0.59); Monocytes % (auto) 5.1 %; Neutrophils # (auto) 10.68 K/uL (1.4-6.5); Neutrophils % (auto) 87.8 %; Platelet Count 221 K/uL (130-400); RDW Coefficient of Variation 12.9 % (11.5-14.5); RDW Standard Deviation 45.6 fL (36.4-46.3); Red Blood Count 5.12 M/uL (4.7-6.1); White Blood Count 12.16 K/uL (4.8-10.8)
[2021-09-04 07:52] LABS: Albumin Level 2.4 gm/dl (3.4-5.0); BUN Creatinine Ratio 29.4 (10-20); Calcium 8.4 mg/dl (8.5-10.1); Creatinine Clr Calc Pharmacy 104.8 ml/min; Est GFR (African American) 89.5 ml/min; Est GFR (Non-African American) 77.2 ml/min; Magnesium 3.3 mg/dl (1.8-2.4); Potassium 4.8 mmol/L (3.5-5.1)
[2021-09-04 07:54] LABS: Albumin Globulin Ratio 0.6 (0.9-2); Bilirubin,Total 1.1 mg/dl (0.2-1); Globulin 4.3 gm/dl (2.5-4.0); Phosphorus 4.4 mg/dl (2.5-4.9); Total Protein 6.7 gm/dl (6.4-8.2)
--- NOTE | 2021-09-04 07:56 | XRay Report ---
XR chest 1V portable CLINICAL HISTORY: Resp failure. Follow-up bilateral airspace opacities COMPARISON STUDY: 09/03/2021 TECHNIQUE: 1 view of the chest FINDINGS: Single frontal view of the chest demonstrates the cardiomediastinal silhouette to be within normal li mits. Tubes and catheters appear unchanged. Compared to previous examination, bilateral interstitial and alveolar opacities are again seen essentially unchanged. There is no evidence for pleural effusio n. There is no evidence for vascular congestion. There is no acute osseous pathology. IMPRESSION: No significant interval change in bilateral interstitial and alveolar opacities. ACT 112: Negative or not required by law. Electronically signed by: Aron Felix M.D. 09/04/2021 7:55 AM
[2021-09-04] MEDS: ENOXAPARIN 80 MG/0.8 ML SYR SQ SCH (08:51)
[2021-09-04] MEDS: dexAMETHasone 6 MG in SYRINGE 0 ML IV SCH (08:53)
[2021-09-04] MEDS ORDERED: OPTIRAY 320 125ml IV ONE (10:03)
[2021-09-04] MEDS: PANTOprazole 40 MG in SYRINGE 0 ML IV SCH (10:50)
[2021-09-04] MEDS ORDERED: VANCOMYCIN HCL 2,500 MG in SODIUM CHLORIDE 0.9% 500 ML IV ONE (11:00)
--- NOTE | 2021-09-04 11:17 | CT Scan Report ---
CT angio chest PE protocol CLINICAL HISTORY: PE TECHNIQUE: Multidetector row helical CT of the chest was performed. Coronal and sagittal reformations were obtained. Automated dose lowering techniques and/or adjustment according to patient size were u tilized for this exam. Comparison: None available at the time of this dictation. FINDINGS: Lungs and pleura: Diffuse groundglass and consolidative opacities are seen. Heart and pericardium: Pneumopericardium is seen ell. Vessels: No evidence of pulmonary embolism. Mediastinum and margarita: Pneumomediastinum is seen. Chest wall and lower neck: Unremarkable. Abdomen: Hepatic steatosis is noted. Bones: Unremarkable. IMPRESSION: 1. No evidence of pulmonary embolism. 2. Pneumopericardium and pneumomediastinum. Correlation for barotrauma is recommended in this intuba artie patient. 3. Reticular and consolidative opacities compatible with history of Covid pneumonia. ACT 112: Negative or not required by law. Electronically signed by: Alistair Andrews M.D. 09/04/2021 11:16 AM
[2021-09-04] MEDS ORDERED: VANCOMYCIN CONSULT ACTIVE PRN (12:15)
--- NOTE | 2021-09-04 12:22 | Pharmacy Report ---
Pharmacy Abx Dose Short Note - Date of Service September 04, 2021 - Assessment & Plan Assessment * 56 year old M receiving VANCOMYCIN IV for treatment of possible staph pneumonia in patient admitted for COVID19 viral pna. * "Staph species" growing in prelim sputum cx from 09/03 * MRSA nasal swab not yet collected * He is currently intubated, sedated, paralyzed for resp failure * Renal fxn stable, hemodynamically stable at this time * Day # 1 of antimicrobial therapy. Plan Vancomycin * Loading dose: 2500mg x 1 (~20mg/kg) * Maint dose of 1250mg IV Q 12 hrs is predicated to achieve a AUC/LAMONT 400-600 with anticipated trough of 16-17mcg/mL and 11% risk of nephrotoxicity * Will check level w/ 4th dose if therapy to continue Pharmacy will continue to follow and will adjust dose/frequency as necessary. Thank you.
[2021-09-04] MEDS: MIDAZOLAM HCL 125 MG/250 ML BAG IV SCH (12:33)
--- NOTE | 2021-09-04 14:31 | Procedure Note ---
Procedure Note Date of Service September 04, 2021 Note CENTRAL LINE PROCEDURE NOTE: Procedure: Central Line Placement Provider: Seven Cardozo MD Indication: Acute renal failure needing access for hemodialysis Anesthesia: none Site: L IJ Procedure was emergent. Patient intubated sedated unable to provide consent. No family immediately available A time-out was completed verifying correct patient, procedure, site, positioning, and implants(s) or special equipment if applicable. Patients left neck was cleansed and draped in the typical sterile fashion using Chloraprep. We initially attempted to access the subclavian vein however the patient's body habitus prevented the needle from accessing the vein and we transitioned to an internal jugular approach. The Internal Jugular Vein and Carotid Artery were identified using ultrasound. The Internal Jugular vein was cannulated under direct ultrasound guidance using an introducer needle on a syringe. Good venous blood return was maintained prior to removal of syringe from introducer needle. Using Seldinger Technique, a guide wire was advanced through the introducer needle without resistance. The introducer needle was removed. A small incision was made in penetrating fashion at the guide wire insertion site utilizing an 11 blade scalpel. Serial dilators were advanced to the vessel without resistance. The final dilator was exchanged for the 24 cm hemodialysis catheter which was advanced into the vessel without resistance. The guide wire was removed intact from the catheter without issue. Claves were placed on each catheter tip with confirmation of good blood flow from each lumen. Each port was easily flushed wi th sterile saline. The catheter was placed at the hub and sutured in place. BioPatch was applied to the catheter and a sterile Tegaderm dressing was applied over the catheter with careful attention to sterility. Patient tolerated procedure well. No immediate complications were met. The dialysis ports were packed with 1-1000 heparin solution. Post procedure x-ray currently pending Ultrasound images were not saved to the medical record due to technical issues Procedural Ultrasound Guidance: Procedure Date: 09/04/2021 Indication: Vascular access Proceduralist: Seven Cardozo MD Artery AND Vein visualized: Yes Compressible Vein: Yes Guidewire or Short Catheter seen in vein prior to dilation: Yes Line confirmed in Vein with ultrasound: Yes Coding CPT Codes Tubes, Drains, and Vasc Access - Tubes, Drains, and Vasc Access: [id number] Insertion of cannula for hemodialysis ([id number]) Tubes, Drains, and Vasc Access - Tubes, Drains, and Vasc Access: [id number] Ultrasound Guidance For Vascular ([id number]) [facility] Procedure Codes (Charges) Tubes, Drains, and Vasc Access Procedure 1: Tubes, Drains, and Vasc Access: [id number] Insertion of cannula for hemodialysis Procedure 2: Tubes, Drains, and Vasc Access: [id number] Ultrasound Guidance For Vascular
[2021-09-04 14:32] LABS: iSTAT Art Bld Gas pCO2 Correct 71 mmHg (35-46); iSTAT Art Bld Gas pH Corrected 7.297 (7.35-7.45); iSTAT Arterial Blood Gas HCO3 34 meg/L (19-24); iSTAT Arterial Blood Gas pCO2 64 mmHg (35-46); iSTAT Arterial Blood Gas pH 7.33 (7.35-7.45); iSTAT Arterial Blood Gas pO2 56 mmHg (80-95); iSTAT Arterial Blood Gas pO2 C 65; iSTAT Carbon Dioxide 36 mmol/L (24-31); iSTAT FiO2 100 %; iSTAT Hematocrit 46 % (42-52); iSTAT Hemoglobin 15.6 g/dl (14.0-18.0); iSTAT Potassium 4.7 mmol/L (3.3-5.0); iSTAT Site Art Line; iSTAT Sodium 141 mmol/L (135-144)
[2021-09-04] MEDS ORDERED: STAT IV Infusion **Titration per Protocol STA (15:27)
--- NOTE | 2021-09-04 15:34 | Critical Care Progress Note ---
Date of Service September 04, 2021 Assessment & Plan (1) Acute hypoxemic respiratory failure due to COVID-19: (2) Pneumonia due to 2019-nCoV: (3) ARDS (adult respiratory distress syndrome): Plan: Impression: 56-year-old unvaccinated male with rapidly progressive COVID-19 pneumonitis/ARDS. Intubated 09/03/2021. 24-hour events: The patient was intubated and proned shortly thereafter. He completed 20 hours of prone positioning. His FiO2 improved slightly. He was flipped back supine at 6:00 this morning. We completed a CT angiogram which showed no evidence of PE but did show significant pneumomediastinum. We attempted to reprone the patient as his FiO2 requirement increased to 80% however patient's oxygen saturations clinically worsened with saturations in the 75 to 80% range with prone positioning confirmed on blood gas. He was flipped back to the supine position given his failure to improve. He has been febrile. Recommendations: 1. Neuro: [place] aggressive sedation protocol with fentanyl Versed and propofol. Neuromuscular blockade for now. 2. Cardiovascular: Hemodynamically stable. Will use norepinephrine on an as- needed basis to maintain systolic blood pressures with sedation 3. Pulmonary: ARDS secondary to novel coronavirus. Failed high flow and noninvasive positive pressure ventilation now intubated. ARDSnet ventilatory strategy. MV D#2. CT angiogram shows no evidence of PE however pneumomediastinum is identified likely secondary to barotrauma and Marlene effect. We will pursue high FiO2 low PEEP strategy to avoid additional barotrauma. Current vent settings: Assist-control/30/380/14/1.0 with a plateau pressure of 27, most recent blood gas 7.33/64/56. P:F 56 consistent with severe ARDS. No ICU beds at [facility] centers and patients BMI and age likely exclude. BNP normal at 24 and procalcitonin undetectable however respiratory culture did grow a staph species. See comments and ID below. Given his failure to improve with proning most recently, will defer additional efforts at proning. Will pursue a trial of nebulized epoprostenol to see if we can improve oxygenation. 4. GI: Nutrition consult for trickle tube feeds. GI prophylaxis. 5. Renal: Dasilva catheter in place. ICU electrolyte replacement protocol to be initiated. Hold diuresis for now. 6. ID: Now febrile with escalated white blood cell count. Respiratory culture with staph species. Will check blood cultures and urine cultures. Vancomycin started but given his fever and elevated white blood cell count will broaden to include cefepime. Continue dexamethasone 6 mg daily for Covid. 7. Endocrine: Glycemic control per ICU protocol 8. Heme-onc: DVT prophylaxis with Lovenox. Patient's brother, Orion, updated by phone. He understands the severity of his illness and options. We briefly discussed addressing CODE STATUS as I do not think CPR defibrillation in this critically ill patient with multiorgan system dysfunction would be beneficial and doubt it would change his overall outcome. They have taken it under advisement 80 minutes critical care time spent evaluating and managing life-threatening illness including discussions with patient brother, bedside critical care nurse, and respiratory therapy. Patient was reviewed on multidisciplinary rounds. This includes time spent proning and on proning the patient as well Admission and Anticipated Discharge Date Admission Date: August 30, 2021 Subjective Intubated and sedated Review of Systems Review of Systems: Unobtainable due to endotracheal tube Physical Exam Constitutional: + mechanically ventilated Neck: trachea midline, no thyromegaly Respiratory: Auscultation: + crackles and + wheezes Cardiovascular: RRR, no murmur, no edema Gastrointestinal (Abdomen): normal bowel sounds, soft, nontender, no hepatosplenomegaly Musculoskeletal: Extremities: extremities normal to inspection Skin: no rashes, warm and dry Lymphatic: no cervical lymphadenopathy Results & Data Results & Data ([facility]) Vital Signs (Past 12 Hours) Vital Signs Temp Pulse Resp BP Pulse Ox 09/04/21 14:11 92 H 30 H 87 L 09/04/21 13:26 117/63 09/04/21 13:00 38.7 C H 90 117/79 88 L 09/04/21 12:30 38.6 C H 88 89 L 09/04/21 12:00 38.4 C H 82 113/74 89 L 09/04/21 11:30 38.4 C H 84 89 L 09/04/21 11:00 38.3 C H 86 107/68 86 L 09/04/21 10:50 88 30 H 88 L 09/04/21 10:30 38.3 C H 88 14 85 L 09/04/21 10:11 89 20 09/04/21 09:30 37.8 C H 93 H 30 H 89 L 09/04/21 09:00 37.9 C H 91 H 30 H 108/75 90 09/04/21 08:30 37.4 C 90 30 H 91 09/04/21 08:00 37.4 C 87 30 H 98/68 L 91 09/04/21 07:56 37.3 C 09/04/21 07:40 87 84/48 L 09/04/21 07:30 37.4 C 85 30 H 89 L 09/04/21 07:00 37.4 C 85 30 H 102/72 87 L 09/04/21 06:30 37.5 C 85 30 H 86 L 09/04/21 06:00 37.4 C 88 30 H 121/78 89 L 09/04/21 05:55 89 30 H 91 09/04/21 05:30 37.2 C 87 30 H 94 09/04/21 05:00 37.2 C 87 30 H 127/80 94 09/04/21 04:30 37.2 C 88 30 H 94 09/04/21 04:15 30 H 94 09/04/21 04:00 36.9 C 88 30 H 127/79 95 09/04/21 03:30 37.5 C 89 30 H 93 Critical Care Results & Data Vital Signs (Past 12 Hours) Vital Signs Temp Pulse Resp BP Pulse Ox 09/04/21 14:11 92 H 30 H 87 L 09/04/21 13:26 117/63 09/04/21 13:00 38.7 C H 90 117/79 88 L 09/04/21 12:30 38.6 C H 88 89 L 09/04/21 12:00 38.4 C H 82 113/74 89 L 09/04/21 11:30 38.4 C H 84 89 L 09/04/21 11:00 38.3 C H 86 107/68 86 L 09/04/21 10:50 88 30 H 88 L 09/04/21 10:30 38.3 C H 88 14 85 L 09/04/21 10:11 89 20 09/04/21 09:30 37.8 C H 93 H 30 H 89 L 09/04/21 09:00 37.9 C H 91 H 30 H 108/75 90 09/04/21 08:30 37.4 C 90 30 H 91 09/04/21 08:00 37.4 C 87 30 H 98/68 L 91 09/04/21 07:56 37.3 C 09/04/21 07:40 87 84/48 L 09/04/21 07:30 37.4 C 85 30 H 89 L 09/04/21 07:00 37.4 C 85 30 H 102/72 87 L 09/04/21 06:30 37.5 C 85 30 H 86 L 09/04/21 06:00 37.4 C 88 30 H 121/78 89 L 09/04/21 05:55 89 30 H 91 09/04/21 05:30 37.2 C 87 30 H 94 09/04/21 05:00 37.2 C 87 30 H 127/80 94 09/04/21 04:30 37.2 C 88 30 H 94 09/04/21 04:15 30 H 94 09/04/21 04:00 36.9 C 88 30 H 127/79 95 09/04/21 03:30 37.5 C 89 30 H 93 Lab & Micro Results (Past 24 Hours) RBC 5.12 M/uL (4.7-6.1) 09/04/21 WBC 12.16 K/uL (4.8-10.8) H 09/04/21 Hgb 16.0 g/dL (14.0-18.0) 09/04/21 Hct 49.1 % (42-52) 09/04/21 MCV 95.9 fL (80-100) 09/04/21 MCH 31.3 pg (25-34) 09/04/21 MCHC 32.6 g/dL (32-36) 09/04/21 RDW Standard Deviation 45.6 fL (36.4-46.3) 09/04/21 RDW Coefficient of Variation 12.9 % (11.5-14.5) 09/04/21 Plt Count 221 K/uL (130-400) 09/04/21 MPV 11.1 fL (7.4-10.4) H 09/04/21 Neutrophils (%) (Auto) 87.8 % 09/04/21 Lymphocytes (%) (Auto) 5.8 % 09/04/21 Monocytes # (Auto) 0.62 K/uL (0.11-0.59) H 09/04/21 Eosinophils # (Auto) 0.00 K/uL (0-0.5) 09/04/21 Immature Granulocyte % (Auto) 1.1 % 09/04/21 Neutrophils # (Auto) 10.68 K/uL (1.4-6.5) H 09/04/21 Lymphocytes # (Auto) 0.71 K/uL (1.2-3.4) L 09/04/21 Monocytes # (Auto) 0.62 K/uL (0.11-0.59) H 09/04/21 Eosinophils # (Auto) 0.00 K/uL (0-0.5) 09/04/21 Basophils # (Auto) 0.02 K/uL (0-0.2) 09/04/21 Immature Granulocyte # (Auto) 0.13 K/uL (0.00-0.02) H 09/04/21 Na 138 mmol/L (136-145) 09/04/21 K 4.8 mmol/L (3.5-5.1) 09/04/21 Cl 103 mmol/L (98-107) 09/04/21 CO2 31 mmol/L (21-32) 09/04/21 Anion Gap 4.0 (3-11) 09/04/21 BUN 31 mg/dl (7-18) H 09/04/21 Creatinine 1.07 mg/dl (0.6-1.4) 09/04/21 Estimated GFR ( Amer) 89.5 ml/min 09/04/21 Estimated GFR (Non-Af Amer) 77.2 ml/min 09/04/21 BUN/Creatinine Ratio 29.4 (10-20) H 09/04/21 Glu 152 mg/dl (70-99) H 09/04/21 Ca 8.4 mg/dl (8.5-10.1) L 09/04/21 Phosphorus Level 4.4 mg/dl (2.5-4.9) 09/04/21 Total Bilirubin 1.1 mg/dl (0.2-1) H 09/04/21 AST 71 U/L (15-37) H 09/04/21 ALT 145 (12-78) H 09/04/21 Alkaline Phosphatase 53 U/L (45-117) 09/04/21 TP 6.7 gm/dl (6.4-8.2) 09/04/21 Albumin 2.4 gm/dl (3.4-5.0) L 09/04/21 Globulin 4.3 gm/dl (2.5-4.0) H 09/04/21 Albumin/Globulin Ratio 0.6 (0.9-2) L 09/04/21 Mg 3.3 mg/dl (1.8-2.4) H 09/04/21 06:34 09/04/21 Calcium Level 8.4 mg/dl (8.5-10.1) L 09/04/21 06:34 09/04/21 Marcelo Test NA 09/04/21 14:09 09/04/21 Microbiology 09/03/21 15:00 Gram Stain - Final Sputum,Vent Suction Sputum Culture - Preliminary Staphylococcus species Diagnostic Findings (Past 24 Hours) Chest CTA 09/03/21 11:35 CT angio chest PE protocol CLINICAL HISTORY: PE TECHNIQUE: Multidetector row helical CT of the chest was performed. Coronal and sagittal reformations were obtained. Automated dose lowering techniques and/or adjustment according to patient size were utilized for this exam. Comparison: None available at the time of this dictation. FINDINGS: Lungs and pleura: Diffuse groundglass and consolidative opacities are seen. Heart and pericardium: Pneumopericardium is seen ell. Vessels: No evidence of pulmonary embolism. Mediastinum and margarita: Pneumomediastinum is seen. Chest wall and lower neck: Unremarkable. Abdomen: Hepatic steatosis is noted. Bones: Unremarkable. IMPRESSION: 1. No evidence of pulmonary embolism. 2. Pneumopericardium and pneumomediastinum. Correlation for barotrauma is recommended in this intubated patient. 3. Reticular and consolidative opacities compatible with history of Covid pneumonia. ACT 112: Negative or not required by law. Electronically signed by: Alistair Andrews M.D. 09/04/2021 11:16 AM Chest X-Ray 09/04/21 07:00 XR chest 1V portable CLINICAL HISTORY: Resp failure. Follow-up bilateral airspace opacities COMPARISON STUDY: 09/03/2021 TECHNIQUE: 1 view of the chest FINDINGS: Single frontal view of the chest demonstrates the cardiomediastinal silhouette to be within normal limits. Tubes and catheters appear unchanged. Compared to previous examination, bilateral interstitial and alveolar opacities are again seen essentially unchanged. There is no evidence for pleural effusion. There is no evidence for vascular congestion. There is no acute osseous pathology. IMPRESSION: No significant interval change in bilateral interstitial and alveolar opacities. ACT 112: Negative or not required by law. Electronically signed by: Aron Felix M.D. 09/04/2021 7:55 AM I & O Totals 24 Hours 09/03/21 09/04/21 09/05/21 06:59 06:59 06:59 Intake Total 250 / 250 917.675 / 917.675 829.517 / 829.517 Output Total 2651 / 2651 2425 / 2425 800 / 800 Balance -2401 / -2401 -1507.325 / -1507.325 29.517 / 29.517 Cumulative 08/30/21 11:53 thru 09/04/21 14:46 Intake Total 4707.192 Output Total 5876 Balance -1168.808 RT Ventilator Mngmt (Last Documented) Ventilator Ordered Settings Ventilator Support Mode Assist Control 09/04/21 14:11 Respiratory Rate 30 09/04/21 14:11 Ventilator Tidal Volume 380 09/04/21 14:11 Setting Minute Ventilation 11.1 09/04/21 14:11 Positive End Expiratory 14 09/04/21 14:11 Pressure Fraction of Inspired Oxygen 100 09/04/21 14:11 Peak Inspiratory Flow 23 09/03/21 15:25 Machine Comment PT PRONED, CHANGING TO SUPINE 09/04/21 14:11 Ventilator - PT Measurements Respiratory Rate 30 Exhaled Tidal Volume 380 Minute Ventilation 11.1 Peak Inspiratory Airway 28 Pressure Plateau Pressure 27 Respiratory Cycle Inspiratory: 1:1 Expiratory Ratio Inspiratory Phase Time 1 Static Lung Compliance 29.23 Dynamic Lung Compliance 27.14 Normal Static Lung Compliance 47.00 Patient Measurements Comment ETCO2 NOT WORKING Coding Level of Care Code Critical Care ea addt'l 30 min Diagnoses Acute hypoxemic respiratory failure due to COVID-19 U07.1; J96.01 Pneumonia due to 2019-nCoV U07.1; J12.82 ARDS (adult respiratory distress syndrome) J80 Time Spent (min) 80 Comment [id number] and [id number]
--- NOTE | 2021-09-04 15:41 | Hospitalist Progress Note ---
Date of Service September 04, 2021 Assessment & Plan (1) Acute hypoxemic respiratory failure due to COVID-19: Plan: Worsening Acute hypoxic respiratory failure 2/2 ARDS & COVID-[address], sedated, paralyzed - Unvaccinated -Diuresis held WBC normal, hemoglobin normal, platelet count normal, troponin negative ABG 7.49, PCO2 35, PO2 63 on 50 L at 100%, HCO3 26 CXR: Patchy bilateral airspace opacities and interstitial thickening consistent with viral pneumonia on admit - Repeat CXR: With progressive patchy opacities consistent with worsening viral pneumonia. CVA without opacity. CRP previously downtrending, did not meet criteria for baricitinib. CRP re dalila less than 1 Patient required endotracheal intubation 09/03 - Pt on weight based COVID DVT ppx without missed/refused doses Adjunct epoprostenol added per ICU Febrile with staph species and respiratory culture, continued on vancomycin/cefepime Patient continue be febrile 09/04, BX as above, Tylenol given, cooling blanket as needed No chronic home medications. Pt denied any chronic medical hx/problems/cardiac disease/pulmonary disease/DM Update attempted to give to brother, lives in [place] and is several hours behind the time zone. Unable to reach by phone today or yesterday, will continue to reattempt today. (2) Pneumonia due to 2019-nCoV: Plan: as above, Admission and Anticipated Discharge Date Admission Date: August 30, 2021 Subjective Unobtainable 2/2 ETT Review of Systems Review of Systems: All systems reviewed & are unremarkable except as noted in Subjective Physical Exam Physical Exam: General: Sedated, ETT in place HEENT: Atraumatic, normocephalic. Pulm: Diffuse bibasilar crackles, on vent sedated and on Nimbex Cardiac: Tachycardic, -mrg. Radial pulses intact and symmetrical. Abdominal: Nontender, nondistended, soft Extremities: Warm, moist Results & Data Results & Data ([facility]) Vital Signs (Past 12 Hours) Vital Signs Temp Pulse Resp BP Pulse Ox 09/04/21 14:11 92 H 30 H 87 L 09/04/21 13:26 117/63 09/04/21 13:00 38.7 C H 90 117/79 88 L 09/04/21 12:30 38.6 C H 88 89 L 09/04/21 12:00 38.4 C H 82 113/74 89 L 09/04/21 11:30 38.4 C H 84 89 L 09/04/21 11:00 38.3 C H 86 107/68 86 L 09/04/21 10:50 88 30 H 88 L 09/04/21 10:30 38.3 C H 88 14 85 L 09/04/21 10:11 89 20 09/04/21 09:30 37.8 C H 93 H 30 H 89 L 09/04/21 09:00 37.9 C H 91 H 30 H 108/75 90 09/04/21 08:30 37.4 C 90 30 H 91 09/04/21 08:00 37.4 C 87 30 H 98/68 L 91 09/04/21 07:56 37.3 C 09/04/21 07:40 87 84/48 L 09/04/21 07:30 37.4 C 85 30 H 89 L 09/04/21 07:00 37.4 C 85 30 H 102/72 87 L 09/04/21 06:30 37.5 C 85 30 H 86 L 09/04/21 06:00 37.4 C 88 30 H 121/78 89 L 09/04/21 05:55 89 30 H 91 09/04/21 05:30 37.2 C 87 30 H 94 09/04/21 05:00 37.2 C 87 30 H 127/80 94 09/04/21 04:30 37.2 C 88 30 H 94 09/04/21 04:15 30 H 94 09/04/21 04:00 36.9 C 88 30 H 127/79 95 PG Care Time/CCT Total # of Minutes Spent Total Time Spent with Patient: Total time spent is greater than 50% in coordination of care (as documented) at patient's floor/unit and/or counseling patient: Coding Level of Care Code 06872 Subseq Hosp Care Lvl 1 Diagnoses Acute hypoxemic respiratory failure due to COVID-19 U07.1; J96.01 Pneumonia due to 2019-nCoV U07.1; J12.82
[2021-09-04] MEDS: ICU ELECTROLYTE REPLACEMENT PROTOCOL SCH (17:13)
[2021-09-04] MEDS: NOREPINEPHRINE/D5W 8 MG/508 ML BAG IV SCH (17:13)
[2021-09-04] MEDS: ACETAMINOPHEN 325 MG TAB PO PRN (17:40)
[2021-09-04] MEDS: EPOPROSTENOL SODIUM (GLYCINE) 1.5 MG/5 ML INH PRN ×2 (17:51→22:43)
[2021-09-04] MEDS: TUBE FEEDING WATER FLUSH OG SCH ×2 (17:57→21:13)
[2021-09-04] MEDS: CEFEPIME 2,000 MG in SYRINGE 0 ML IV SCH (17:58)
[2021-09-04] MEDS: PEPTAMEN INTENSE VHP 1.0 CAL 1,000 ML BAG OG SCH (18:10)
--- NOTE | 2021-09-04 20:47 | Ultrasound Report ---
BILATERAL LOWER EXTREMITY VENOUS DOPPLER CLINICAL HISTORY: Covid. DVT? COMPARISON STUDY: No previous studies for comparison. TECHNIQUE: Sonography of the deep venous system of the bilateral lower extremities was performed. Co mpression and augmentation were evaluated. FINDINGS: The bilateral common femoral, superficial femoral and popliteal veins were compressible. A ugmentation was normal. Flow was shown within the deep calf vessels. IMPRESSION: No evidence of deep venous thrombus within the bilateral lower extremities. ACT 112: Negative or not required by law. Electronically signed by: Adis Duran M.D. 09/04/2021 8:45 PM
[2021-09-04] MEDS: ENOXAPARIN INJ 30 MG/0.3 ML SYR SQ SCH (21:12)
[2021-09-05] MEDS ORDERED: VANCOMYCIN HCL 1,250 MG in SODIUM CHLORIDE 0.9% 250 ML IV SCH
[2021-09-05] MEDS: ARTIFICIAL TEARS OP OINT 3.5 GM TUBE OP SCH ×7 (00:43→23:55)
[2021-09-05] MEDS: CEFEPIME 2,000 MG in SYRINGE 0 ML IV SCH ×2 (00:44→08:17)
[2021-09-05] MEDS: TUBE FEEDING WATER FLUSH OG SCH ×6 (00:44→21:04)
[2021-09-05] MEDS: propofoL 1,000 MG/100 ML VIAL IV SCH ×6 (02:24→23:54)
[2021-09-05] MEDS: CISATRACURIUM BESYLATE 40 MG in 0.9 % SODIUM CHLORIDE 80 ML IV SCH ×5 (02:24→18:10)
[2021-09-05] MEDS: EPOPROSTENOL SODIUM (GLYCINE) 1.5 MG/5 ML INH PRN ×2 (03:30→08:03)
[2021-09-05 03:35] LABS: iSTAT Art Bld Gas pCO2 Correct 70 mmHg (35-46); iSTAT Art Bld Gas pH Corrected 7.296 (7.35-7.45); iSTAT Arterial Blood Gas HCO3 33 meg/L (19-24); iSTAT Arterial Blood Gas pCO2 64 mmHg (35-46); iSTAT Arterial Blood Gas pH 7.32 (7.35-7.45); iSTAT Arterial Blood Gas pO2 70 mmHg (80-95); iSTAT Arterial Blood Gas pO2 C 80; iSTAT Carbon Dioxide 35 mmol/L (24-31); iSTAT FiO2 70 %; iSTAT Hematocrit 47 % (42-52); iSTAT Potassium 4.6 mmol/L (3.3-5.0); iSTAT Site Art Line; iSTAT Sodium 142 mmol/L (135-144)
[2021-09-05] MEDS: fentaNYL DRIP 1,250 MCG/250 ML BAG IV SCH ×2 (05:59→23:54)
[2021-09-05 06:39] LABS: Basophils # (auto) 0.02 K/uL (0-0.2); Basophils % (auto) 0.2 %; Hematocrit (blood only) 50.2 % (42-52); Hemoglobin 15.6 g/dL (14.0-18.0); Lymphocytes # (auto) 0.88 K/uL (1.2-3.4); Lymphocytes % (auto) 8.6 %; Mean Corpuscular Hgb Conc 31.1 g/dL (32-36); Mean Corpuscular Volume 99.8 fL (80-100); Mean Platelet Volume 10.9 fL (7.4-10.4); Monocytes # (auto) 0.74 K/uL (0.11-0.59); Monocytes % (auto) 7.2 %; Neutrophils # (auto) 8.52 K/uL (1.4-6.5); Platelet Count 253 K/uL (130-400); RDW Coefficient of Variation 13.5 % (11.5-14.5); RDW Standard Deviation 49.7 fL (36.4-46.3); Red Blood Count 5.03 M/uL (4.7-6.1); White Blood Count 10.26 K/uL (4.8-10.8)
[2021-09-05 07:09] LABS: Albumin Level 2.2 gm/dl (3.4-5.0); BUN Creatinine Ratio 36.3 (10-20); Calcium 8.5 mg/dl (8.5-10.1); Creatinine Clr Calc Pharmacy 94.3 ml/min; Est GFR (African American) 78.7 ml/min; Est GFR (Non-African American) 67.9 ml/min; Magnesium 3.7 mg/dl (1.8-2.4); Potassium 4.7 mmol/L (3.5-5.1)
[2021-09-05 07:18] LABS: Albumin Globulin Ratio 0.5 (0.9-2); Bilirubin,Total 1.1 mg/dl (0.2-1); Globulin 4.5 gm/dl (2.5-4.0); Phosphorus 2.7 mg/dl (2.5-4.9); Total Protein 6.7 gm/dl (6.4-8.2)
[2021-09-05] MEDS: dexAMETHasone 6 MG in SYRINGE 0 ML IV SCH (08:15)
[2021-09-05] MEDS: ENOXAPARIN INJ 30 MG/0.3 ML SYR SQ SCH ×2 (08:19→21:03)
--- NOTE | 2021-09-05 08:28 | XRay Report ---
XR chest 1V portable CLINICAL HISTORY: Respiratory failure. COMPARISON STUDY: Chest radiograph and chest CT September 04, 2021. FINDINGS: Tip of endotracheal tube is 2.3 cm above the flaca. Right internal jugular central line re dalila in place. Tip of nasogastric tube is not well visualized but at least within the distal stomach . Cardiomediastinal silhouette is stable. Bilateral airspace opacities are similar to prior examinati on. Lucency overlying the left heart border represents pneumomediastinum shown on prior CT. Soft tiss ue gas within the neck is also noted. No pneumothorax is identified. IMPRESSION: 1. Satisfactory positioning of lines and tubes. 2. Redemonstration of pneumomediastinum and soft tissue gas within neck. No pneumothorax. 3. No significant change in bilateral airspace opacities consistent with viral pneumonia. ACT 112: Negative or not required by law. Electronically signed by: Adis Duran M.D. 09/05/2021 8:27 AM
[2021-09-05] MEDS: ACETAMINOPHEN 325 MG TAB PO PRN ×2 (09:29→15:54)
[2021-09-05] MEDS: ICU ELECTROLYTE REPLACEMENT PROTOCOL SCH ×2 (10:05→18:10)
[2021-09-05] MEDS: MIDAZOLAM HCL 125 MG/250 ML BAG IV SCH ×2 (11:02→13:34)
[2021-09-05] MEDS: MULTI VIT W/MINERALS LIQUID 15 ML UDP NG SCH (11:32)
[2021-09-05] MEDS: NOREPINEPHRINE/D5W 8 MG/508 ML BAG IV SCH (12:30)
[2021-09-05] MEDS: PANTOprazole 40 MG in SYRINGE 0 ML IV SCH (12:35)
--- NOTE | 2021-09-05 16:52 | Hospitalist Progress Note ---
Date of Service September 05, 2021 Assessment & Plan (1) Acute hypoxemic respiratory failure due to COVID-19: Plan: Acute hypoxic respiratory failure 2/2 ARDS & COVID-[address] remains on Nimbex, fentanyl, Versed, propofol - Unvaccinated -Diuresis held WBC normal, hemoglobin normal, platelet count normal, troponin negative AB.3 2/64/70/33 CXR: Patchy bilateral airspace opacities and interstitial thickening consistent with viral pneumonia on admit - Repeat CXR: With progressive patchy opacities consistent with worsening viral pneumonia. CVA without opacity. CRP previously downtrending, did not meet criteria for baricitinib. CRP remains less than 1 Patient required endotracheal intubation 09/03 Adjunct epoprostenol added per ICU Febrile with staph species and respiratory culture, antibiotics expanded to vancomycin/cefepime BC 09/04 no growth to date Fever continues. Tylenol, cooling blankets needed. Antibiotics expanded to cefepime/Vanco. CT 09/03 pneumoperitoneum, low PEEP strategy per ICU. Appreciate management and recommendations. CXR with no significant change No chronic home medications. Pt denied any chronic medical hx/problems/cardiac disease/pulmonary disease/DM DVT prophylaxis: Lovenox Diet: ETT in place. OG trickle feeds with nutrition consulted. Dispo: Remains critically ill, vent in place in ICU status (2) Pneumonia due to 2019-nCoV: Plan: as above, Admission and Anticipated Discharge Date Admission Date: August 30, 2021 Subjective Unobtainable 2/2 ETT Review of Systems Review of Systems: Unobtainable due to ETT Physical Exam Physical Exam: General: Sedated, ETT in place HEENT: Atraumatic, normocephalic. Pulm: Diffuse bibasilar crackles, on vent sedated and on Nimbex Cardiac: Tachycardic, -mrg. Radial pulses intact and symmetrical. Abdominal: Nontender, nondistended, soft Extremities: Warm, moist Results & Data Results & Data ([facility]) Vital Signs (Past 12 Hours) Vital Signs Temp Pulse Resp BP Pulse Ox 09/05/21 13:50 100 H 31 H 93 09/05/21 13:32 101 H 31 H 138/65 93 09/05/21 13:00 39.1 C H 104 H 142/76 H 92 09/05/21 12:20 102 H 31 H 139/64 93 09/05/21 12:00 39.1 C H 103 H 134/77 93 09/05/21 11:23 104 H 31 H 94 09/05/21 11:20 103 H 31 H 134/63 92 09/05/21 11:00 39.1 C H 105 H 126/78 92 09/05/21 10:15 110 H 09/05/21 10:00 39.2 C H 110 H 30 H 128/74 91 09/05/21 09:00 39.1 C H 110 H 30 H 142/82 H 90 09/05/21 08:07 109 H 31 H 131/65 91 09/05/21 08:00 39.1 C H 110 H 30 H 130/78 91 09/05/21 07:34 109 H 31 H 91 09/05/21 07:31 110 H 31 H 134/63 91 09/05/21 07:00 39.2 C H 109 H 30 H 133/74 91 09/05/21 05:53 108 H 31 H 126/62 91 09/05/21 05:15 106 H 30 H 127/61 91 PG Care Time/CCT Total # of Minutes Spent Total Time Spent with Patient: Total time spent is greater than 50% in coordination of care (as documented) at patient's floor/unit and/or counseling patient: Coding Level of Care Code 66144 Subseq Hosp Care Lvl 1 Diagnoses Acute hypoxemic respiratory failure due to COVID-19 U07.1; J96.01 Pneumonia due to 2019-nCoV U07.1; J12.82
--- NOTE | 2021-09-05 17:38 | Critical Care Progress Note ---
Date of Service September 05, 2021 Assessment & Plan (1) Acute hypoxemic respiratory failure due to COVID-19: (2) Pneumonia due to 2019-nCoV: (3) ARDS (adult respiratory distress syndrome): Plan: Impression: 56-year-old unvaccinated male with rapidly progressive COVID-19 pneumonitis/ARDS. Intubated 09/03/2021. 24-hour events: Patient failed trial of proning. He was placed on inhaled epoprostenol and had significant improvement in oxygenation indices. Epoprostenol has been weaned off per protocol and his FiO2 remains at 0.6. He is hemodynamically stable. He is growing methicillin sensitive staph from his sputum sample. Recommendations: 1. Neuro: Gwynn aggressive sedation protocol with fentanyl Versed and propofol. Wean off NM blockade. 2. Cardiovascular: Hemodynamically stable. Will use norepinephrine on an as- needed basis to maintain systolic blood pressures with sedation 3. Pulmonary: ARDS secondary to novel coronavirus. Failed high flow and noninvasive positive pressure ventilation now intubated. ARDSnet ventilatory strategy. MV D#3. CT angiogram shows no evidence of PE however pneumomediastinum is identified likely secondary to barotrauma and Marlene effect. We will pursue high FiO2 low PEEP strategy to avoid additional barotrauma. Current vent settings: Assist-control/30/380/14/0.6 with a plateau pressure of 21, most recent blood gas 7.32/64/70. P:F 116 consistent with severe ARDS but improved from yesterday. No ICU beds at [facility] centers and patients BMI and age likely exclude. BNP normal at 24 and procalcitonin undetectable however respiratory culture did grow a staph species. See comments and ID below. 4. GI: Nutrition consult for trickle tube feeds. GI prophylaxis. 5. Renal: Dasilva catheter in place. ICU electrolyte replacement protocol to be initiated. Hold diuresis for now. 6. ID: Sensitive staph identified in sputum. Antibiotics will be deescalated to Rocephin. Day #2 antibiotics. Continue dexamethasone 6 mg daily for Covid. 7. Endocrine: Glycemic control per ICU protocol 8. Heme-onc: DVT prophylaxis with Lovenox. Patient's brother, Orion, updated by phone. He understands the severity of his illness and options. We briefly discussed addressing CODE STATUS as I do not think CPR defibrillation in this critically ill patient with multiorgan system dysfunction would be beneficial and doubt it would change his overall outcome. They have taken it under advisement. No decision as of yet. 50 minutes critical care time spent evaluating and managing life-threatening illness including discussions with patient brother, bedside critical care nurse, and respiratory therapy. Patient was reviewed on multidisciplinary rounds. Admission and Anticipated Discharge Date Admission Date: August 30, 2021 Subjective Intubated and sedated Review of Systems Review of Systems: Unobtainable due to endotracheal tube Physical Exam Constitutional: + mechanically ventilated Neck: trachea midline, no thyromegaly Respiratory: + respiratory distress, + labored breathing, + uses accessory muscles and + tachypneic Auscultation: + crackles and + wheezes Cardiovascular: RRR, no murmur, no edema Gastrointestinal (Abdomen): normal bowel sounds, soft, nontender, no hepatosplenomegaly Musculoskeletal: Extremities: extremities normal to inspection Skin: no rashes, warm and dry Lymphatic: no cervical lymphadenopathy Results & Data Results & Data ([facility]) Vital Signs (Past 12 Hours) Vital Signs Temp Pulse Resp BP Pulse Ox 09/05/21 17:00 38.3 C H 95 H 30 H 130/72 89 L 09/05/21 16:00 100 H 31 H 135/78 90 09/05/21 15:00 94 H 31 H 127/77 87 L 09/05/21 14:00 39.0 C H 101 H 30 H 139/76 89 L 09/05/21 13:50 100 H 31 H 93 09/05/21 13:32 101 H 31 H 138/65 93 09/05/21 13:00 39.1 C H 104 H 142/76 H 92 09/05/21 12:20 102 H 31 H 139/64 93 09/05/21 12:00 39.1 C H 103 H 134/77 93 09/05/21 11:23 104 H 31 H 94 09/05/21 11:20 103 H 31 H 134/63 92 09/05/21 11:00 39.1 C H 105 H 126/78 92 09/05/21 10:15 110 H 09/05/21 10:00 39.2 C H 110 H 30 H 128/74 91 09/05/21 09:00 39.1 C H 110 H 30 H 142/82 H 90 09/05/21 08:07 109 H 31 H 131/65 91 09/05/21 08:00 39.1 C H 110 H 30 H 130/78 91 09/05/21 07:34 109 H 31 H 91 09/05/21 07:31 110 H 31 H 134/63 91 09/05/21 07:00 39.2 C H 109 H 30 H 133/74 91 09/05/21 05:53 108 H 31 H 126/62 91 Critical Care Results & Data Vital Signs (Past 12 Hours) Vital Signs Temp Pulse Resp BP Pulse Ox 09/05/21 17:00 38.3 C H 95 H 30 H 130/72 89 L 09/05/21 16:00 100 H 31 H 135/78 90 09/05/21 15:00 94 H 31 H 127/77 87 L 09/05/21 14:00 39.0 C H 101 H 30 H 139/76 89 L 09/05/21 13:50 100 H 31 H 93 09/05/21 13:32 101 H 31 H 138/65 93 09/05/21 13:00 39.1 C H 104 H 142/76 H 92 09/05/21 12:20 102 H 31 H 139/64 93 09/05/21 12:00 39.1 C H 103 H 134/77 93 09/05/21 11:23 104 H 31 H 94 09/05/21 11:20 103 H 31 H 134/63 92 09/05/21 11:00 39.1 C H 105 H 126/78 92 09/05/21 10:15 110 H 09/05/21 10:00 39.2 C H 110 H 30 H 128/74 91 09/05/21 09:00 39.1 C H 110 H 30 H 142/82 H 90 09/05/21 08:07 109 H 31 H 131/65 91 09/05/21 08:00 39.1 C H 110 H 30 H 130/78 91 09/05/21 07:34 109 H 31 H 91 09/05/21 07:31 110 H 31 H 134/63 91 09/05/21 07:00 39.2 C H 109 H 30 H 133/74 91 09/05/21 05:53 108 H 31 H 126/62 91 Lab & Micro Results (Past 24 Hours) RBC 5.03 M/uL (4.7-6.1) 09/05/21 WBC 10.26 K/uL (4.8-10.8) 09/05/21 Hgb 15.6 g/dL (14.0-18.0) 09/05/21 Hct 50.2 % (42-52) 09/05/21 MCV 99.8 fL (80-100) 09/05/21 MCH 31.0 pg (25-34) 09/05/21 MCHC 31.1 g/dL (32-36) L 09/05/21 RDW Standard Deviation 49.7 fL (36.4-46.3) H 09/05/21 RDW Coefficient of Variation 13.5 % (11.5-14.5) 09/05/21 Plt Count 253 K/uL (130-400) 09/05/21 MPV 10.9 fL (7.4-10.4) H 09/05/21 Neutrophils (%) (Auto) 83.0 % 09/05/21 Lymphocytes (%) (Auto) 8.6 % 09/05/21 Monocytes # (Auto) 0.74 K/uL (0.11-0.59) H 09/05/21 Eosinophils # (Auto) 0.00 K/uL (0-0.5) 09/05/21 Immature Granulocyte % (Auto) 1.0 % 09/05/21 Neutrophils # (Auto) 8.52 K/uL (1.4-6.5) H 09/05/21 Lymphocytes # (Auto) 0.88 K/uL (1.2-3.4) L 09/05/21 Monocytes # (Auto) 0.74 K/uL (0.11-0.59) H 09/05/21 Eosinophils # (Auto) 0.00 K/uL (0-0.5) 09/05/21 Basophils # (Auto) 0.02 K/uL (0-0.2) 09/05/21 Immature Granulocyte # (Auto) 0.10 K/uL (0.00-0.02) H 09/05/21 Na 143 mmol/L (136-145) 09/05/21 K 4.7 mmol/L (3.5-5.1) 09/05/21 Cl 107 mmol/L (98-107) 09/05/21 CO2 30 mmol/L (21-32) 09/05/21 Anion Gap 6.0 (3-11) 09/05/21 BUN 43 mg/dl (7-18) H 09/05/21 Creatinine 1.19 mg/dl (0.6-1.4) 09/05/21 Estimated GFR ( Amer) 78.7 ml/min 09/05/21 Estimated GFR (Non-Af Amer) 67.9 ml/min 09/05/21 BUN/Creatinine Ratio 36.3 (10-20) H 09/05/21 Glu 148 mg/dl (70-99) H 09/05/21 Ca 8.5 mg/dl (8.5-10.1) 09/05/21 Phosphorus Level 2.7 mg/dl (2.5-4.9) 09/05/21 Total Bilirubin 1.1 mg/dl (0.2-1) H 09/05/21 AST 52 U/L (15-37) H 09/05/21 ALT 97 (12-78) H 09/05/21 Alkaline Phosphatase 46 U/L (45-117) 09/05/21 TP 6.7 gm/dl (6.4-8.2) 09/05/21 Albumin 2.2 gm/dl (3.4-5.0) L 09/05/21 Globulin 4.5 gm/dl (2.5-4.0) H 09/05/21 Albumin/Globulin Ratio 0.5 (0.9-2) L 09/05/21 Mg 3.7 mg/dl (1.8-2.4) H 09/05/21 06:02 09/05/21 Calcium Level 8.5 mg/dl (8.5-10.1) 09/05/21 06:02 09/05/21 Marcelo Test NA 09/05/21 03:20 09/05/21 Microbiology 09/04/21 15:42 Urine Culture - Preliminary Urine,Indwelling Cath Pin-point growth present, reincubating. 09/03/21 15:00 Gram Stain - Final Sputum,Vent Suction Sputum Culture - Final Staphylococcus aureus Diagnostic Findings (Past 24 Hours) Venous Doppler Study 09/04/21 00:00 BILATERAL LOWER EXTREMITY VENOUS DOPPLER CLINICAL HISTORY: Covid. DVT? COMPARISON STUDY: No previous studies for comparison. TECHNIQUE: Sonography of the deep venous system of the bilateral lower extremities was performed. Compression and augmentation were evaluated. FINDINGS: The bilateral common femoral, superficial femoral and popliteal veins were compressible. Augmentation was normal. Flow was shown within the deep calf vessels. IMPRESSION: No evidence of deep venous thrombus within the bilateral lower extremities. ACT 112: Negative or not required by law. Electronically signed by: Adis Duran M.D. 09/04/2021 8:45 PM Chest X-Ray 09/05/21 07:00 XR chest 1V portable CLINICAL HISTORY: Respiratory failure. COMPARISON STUDY: Chest radiograph and chest CT September 04, 2021. FINDINGS: Tip of endotracheal tube is 2.3 cm above the flcaa. Right internal jugular central line remains in place. Tip of nasogastric tube is not well visualized but at least within the distal stomach. Cardiomediastinal silhouette is stable. Bilateral airspace opacities are similar to prior examination. Lucency overlying the left heart border represents pneumomediastinum shown on prior CT. Soft tissue gas within the neck is also noted. No pneumothorax is identified. IMPRESSION: 1. Satisfactory positioning of lines and tubes. 2. Redemonstration of pneumomediastinum and soft tissue gas within neck. No pneumothorax. 3. No significant change in bilateral airspace opacities consistent with viral pneumonia. ACT 112: Negative or not required by law. Electronically signed by: Adis Duran M.D. 09/05/2021 8:27 AM I & O Totals 24 Hours 09/04/21 09/05/21 09/06/21 06:59 06:59 06:59 Intake Total 917.675 / 451.414 7155.951 / 1820.951 560.705 / 560.705 Output Total 2425 / 2425 800 / 800 1100 / 1100 Balance -1507.325 / -8989.628 2802.951 / 1020.951 -539.295 / -539.295 Cumulative 08/30/21 11:53 thru 09/05/21 15:29 Intake Total 6259.331 Output Total 6976 Balance -716.669 RT Ventilator Mngmt (Last Documented) Ventilator Ordered Settings Ventilator Support Mode Assist Control 09/05/21 13:50 Respiratory Rate 30 09/05/21 17:00 Ventilator Tidal Volume 380 09/05/21 13:50 Setting Minute Ventilation 11.8 09/05/21 13:50 Positive End Expiratory 14 09/05/21 13:50 Pressure Fraction of Inspired Oxygen 60 09/05/21 17:00 Peak Inspiratory Flow 23 09/03/21 15:25 Machine Comment increased peep back to 14 09/05/21 15:06 Ventilator - PT Measurements Respiratory Rate 30 Exhaled Tidal Volume 552 Minute Ventilation 11.8 Peak Inspiratory Airway 24 Pressure Plateau Pressure 21 Respiratory Cycle Inspiratory: 1:1 Expiratory Ratio Inspiratory Phase Time 1.0 Static Lung Compliance 78.86 Dynamic Lung Compliance 55.20 Normal Static Lung Compliance 49.00 Patient Measurements Comment etco2 not functioning in room Coding Level of Care Code Critical Care 1st 30-74 mins Diagnoses Acute hypoxemic respiratory failure due to COVID-19 U07.1; J96.01 Pneumonia due to 2019-nCoV U07.1; J12.82 ARDS (adult respiratory distress syndrome) J80 Time Spent (min) 48
[2021-09-05] MEDS: cefTRIAXone SODIUM 2,000 MG in DEXTROSE 5% 50 ML IV SCH (18:10)
[2021-09-06] MEDS: TUBE FEEDING WATER FLUSH OG SCH ×6 (00:52→19:54)
[2021-09-06 04:47] LABS: iSTAT Arterial Blood Gas HCO3 30 meg/L (19-24); iSTAT Arterial Blood Gas pCO2 59 mmHg (35-46); iSTAT Arterial Blood Gas pH 7.32 (7.35-7.45); iSTAT Arterial Blood Gas pO2 70 mmHg (80-95); iSTAT Carbon Dioxide 32 mmol/L (24-31); iSTAT FiO2 70 %; iSTAT Site Art Line
[2021-09-06] MEDS: ARTIFICIAL TEARS OP OINT 3.5 GM TUBE OP SCH ×6 (04:57→20:20)
[2021-09-06 05:55] LABS: Basophils # (auto) 0.02 K/uL (0-0.2); Basophils % (auto) 0.2 %; Eosinophils # (auto) 0.01 K/uL (0-0.5); Eosinophils % (auto) 0.1 %; Hematocrit (blood only) 48.8 % (42-52); Hemoglobin 15.3 g/dL (14.0-18.0); Immature Granulocytes # (auto) 0.12 K/uL (0.00-0.02); Immature Granulocytes % (auto) 1.2 %; Lymphocytes # (auto) 0.57 K/uL (1.2-3.4); Lymphocytes % (auto) 5.8 %; Mean Corpuscular Hemoglobin 31.2 pg (25-34); Mean Corpuscular Hgb Conc 31.4 g/dL (32-36); Mean Corpuscular Volume 99.4 fL (80-100); Mean Platelet Volume 10.6 fL (7.4-10.4); Monocytes # (auto) 0.45 K/uL (0.11-0.59); Monocytes % (auto) 4.6 %; Neutrophils # (auto) 8.69 K/uL (1.4-6.5); Neutrophils % (auto) 88.1 %; Platelet Count 239 K/uL (130-400); RDW Coefficient of Variation 13.2 % (11.5-14.5); RDW Standard Deviation 48.1 fL (36.4-46.3); Red Blood Count 4.91 M/uL (4.7-6.1); White Blood Count 9.86 K/uL (4.8-10.8)
[2021-09-06 07:10] LABS: Albumin Globulin Ratio 0.4 (0.9-2); BUN Creatinine Ratio 50.1 (10-20); Bilirubin,Total 0.7 mg/dl (0.2-1); Calcium 9.1 mg/dl (8.5-10.1); Creatinine Clr Calc Pharmacy 138.5 ml/min; Est GFR (African American) 115.1 ml/min; Est GFR (Non-African American) 99.4 ml/min; Globulin 4.6 gm/dl (2.5-4.0); Magnesium 3.4 mg/dl (1.8-2.4); Phosphorus 2.1 mg/dl (2.5-4.9); Potassium 4.6 mmol/L (3.5-5.1); Total Protein 6.6 gm/dl (6.4-8.2)
[2021-09-06] MEDS: propofoL 1,000 MG/100 ML VIAL IV SCH ×7 (07:12→21:39)
[2021-09-06] MEDS: ICU ELECTROLYTE REPLACEMENT PROTOCOL SCH ×2 (07:19→18:23)
[2021-09-06] MEDS ORDERED: SODIUM PHOSPHATE 3 MMOL/1 ML INFUSION IV STA (07:29)
[2021-09-06] MEDS: NOREPINEPHRINE/D5W 8 MG/508 ML BAG IV SCH (07:31)
[2021-09-06] MEDS ORDERED: SODIUM PHOSPHATE 15 MMOL in SODIUM CHLORIDE 0.9% 250 ML IV ONE (07:45)
--- NOTE | 2021-09-06 07:46 | XRay Report ---
XR chest 1V portable HISTORY: 56 years-old Male resp failure acute respiratory failure COMPARISON: Chest radiograph 09/05/2021, CTA chest 09/04/2021 TECHNIQUE: Portable AP view of the chest FINDINGS: The endotracheal tube overlies the midline, 4.3 cm superior to the flaca. Right IJ central venous ca theter distal tip projects over the right atrium. Enteric tube courses below the diaphragm. Study is limited secondary to overlying material over the chest. No pneumothorax identified. Interstitial coar sening with patchy bilateral airspace opacities have mildly progressed. Trace pneumomediastinum redem onstrated. Spondylitic spurring of the spine. IMPRESSION: 1. Lines and tubes as above. 2. Mild progression of the bilateral airspace opacities. 3. Trace pneumomediastinum redemonstrated. No pneumothorax identified. ACT 112: Negative or not required by law. The above report was generated using voice recognition software. It may contain grammatical, syntax o r spelling errors. Electronically signed by: Murali Chavarria M.D. 09/06/2021 7:44 AM
[2021-09-06] MEDS: ACETAMINOPHEN 325 MG TAB PO PRN ×3 (08:26→19:50)
[2021-09-06] MEDS: PEPTAMEN INTENSE VHP 1.0 CAL 1,000 ML BAG OG SCH (08:27)
[2021-09-06] MEDS: MULTI VIT W/MINERALS LIQUID 15 ML UDP NG SCH (08:30)
[2021-09-06] MEDS: ENOXAPARIN INJ 30 MG/0.3 ML SYR SQ SCH ×2 (08:30→19:53)
[2021-09-06] MEDS: dexAMETHasone 6 MG in SYRINGE 0 ML IV SCH (08:31)
[2021-09-06] MEDS: CISATRACURIUM BESYLATE 40 MG in 0.9 % SODIUM CHLORIDE 80 ML IV SCH (11:18)
[2021-09-06] MEDS ORDERED: STAT IV Infusion **Titration per Protocol STA (11:24)
[2021-09-06] MEDS: PANTOprazole 40 MG in SYRINGE 0 ML IV SCH (11:27)
[2021-09-06] MEDS: EPOPROSTENOL SODIUM (GLYCINE) 1.5 MG/5 ML INH PRN (13:44)
[2021-09-06] MEDS: LACTULOSE SYRUP 20 GM/30 ML UDC PO SCH (15:10)
[2021-09-06] MEDS: SENNOSIDES 8.8 MG/5 ML UDC PO SCH ×2 (15:10→19:54)
--- NOTE | 2021-09-06 15:15 | Critical Care Progress Note ---
Date of Service September 06, 2021 Assessment & Plan (1) Acute hypoxemic respiratory failure due to COVID-19: (2) Pneumonia due to 2019-nCoV: (3) ARDS (adult respiratory distress syndrome): Plan: Impression: 56-year-old unvaccinated male with rapidly progressive COVID-19 pneumonitis/ARDS. Intubated 09/03/2021. 24-hour events: Patient had worsening of his oxygenation with increase in his FiO2 requirement back up to 100%. We reinitiated nebulized epoprostenol. Recommendations: 1. Neuro: Continue aggressive sedation protocol with fentanyl Versed and propofol. Now off neuromuscular blockade. Follow clinically. 2. Cardiovascular: Hemodynamically stable. Will use norepinephrine on an as- needed basis to maintain systolic blood pressures with sedation 3. Pulmonary: ARDS secondary to novel coronavirus. Failed high flow and noninvasive positive pressure ventilation now intubated. ARDSnet ventilatory strategy. MV D#3. CT angiogram shows no evidence of PE however pneumomediastinum is identified likely secondary to barotrauma and Marlene effect. We will pursue high FiO2 low PEEP strategy to avoid additional barotrauma. Current vent settings: Assist-control/30/380/16/1.0 with a plateau pressure of 26, most recent blood gas 7.32/59/70. P:F 70 - worse compared to yesterday and consistent with severe ARDS. No ICU beds at [facility] centers and patients BMI and age likely exclude. BNP normal at 24 and procalcitonin undetectable however respiratory culture did grow a staph species. Given his clinical deterioration over the last 24 hours, will reinstitute nebulized epoprostenol. Given his significant pneumomediastinum, will hold off on additional proning for now. 4. GI: Continue tube feeds. GI prophylaxis. Bowel protocol 5. Renal: Dasilva catheter in place. ICU electrolyte replacement protocol. Will attempt gentle diuresis 6. ID: Persistently febrile. Sensitive staph identified in sputum. Currently on Rocephin. Day #3 antibiotics. Continue dexamethasone 6 mg daily for Covid. He does have gram-positive cocci in his urine. Recheck CRP and consider escalated doses of steroids for ARDS if elevated. 7. Endocrine: Glycemic control per ICU protocol 8. Heme-onc: DVT prophylaxis with Lovenox. Patient's brother, Orion, updated by phone. He understands the severity of his illness and options. We briefly discussed addressing CODE STATUS as I do not think CPR defibrillation in this critically ill patient with multiorgan system dysfunction would be beneficial and doubt it would change his overall outcome. They have taken it under advisement. He is considering DNR but wants to talk to other family members. 52 minutes critical care time spent evaluating and managing life-threatening illness including discussions with patient brother, bedside critical care nurse, and respiratory therapy. Patient was reviewed on multidisciplinary rounds. Admission and Anticipated Discharge Date Admission Date: August 30, 2021 Subjective Intubated and sedated Review of Systems Review of Systems: Unobtainable due to endotracheal tube Physical Exam Constitutional: + mechanically ventilated Neck: trachea midline, no thyromegaly Respiratory: Auscultation: + crackles and + wheezes Cardiovascular: RRR, no murmur, no edema Gastrointestinal (Abdomen): normal bowel sounds, soft, nontender, no hepatosplenomegaly Musculoskeletal: Extremities: extremities normal to inspection Skin: no rashes, warm and dry Lymphatic: no cervical lymphadenopathy Results & Data Results & Data ([facility]) Vital Signs (Past 12 Hours) Vital Signs Temp Pulse Pulse Resp BP BP Pulse Ox 09/06/21 14:24 86 32 H 123/65 90 09/06/21 14:17 38.4 C H 82 23 121/84 91 09/06/21 13:45 88 09/06/21 13:22 85 33 H 122/66 88 L 09/06/21 13:18 38.2 C H 90 23 122/74 85 L 09/06/21 13:04 37.9 C H 93 H 18 09/06/21 12:04 83 32 H 90 09/06/21 12:00 83 89 L 09/06/21 11:47 37.7 C H 09/06/21 11:00 84 120/76 88 L 09/06/21 10:00 86 86 L 09/06/21 09:00 88 87 L 09/06/21 08:13 38.0 C H 09/06/21 08:00 88 88 L 09/06/21 07:00 37.9 C H 86 31 H 139/78 89 L 09/06/21 06:53 85 30 H 86 L 09/06/21 06:00 80 86 L 09/06/21 05:00 78 89 L 09/06/21 04:20 73 30 H 91 09/06/21 04:00 37.6 C H 74 91 Critical Care Results & Data Vital Signs (Past 12 Hours) Vital Signs Temp Pulse Pulse Resp BP BP Pulse Ox 09/06/21 14:24 86 32 H 123/65 90 09/06/21 14:17 38.4 C H 82 23 121/84 91 09/06/21 13:45 88 09/06/21 13:22 85 33 H 122/66 88 L 09/06/21 13:18 38.2 C H 90 23 122/74 85 L 09/06/21 13:04 37.9 C H 93 H 18 09/06/21 12:04 83 32 H 90 09/06/21 12:00 83 89 L 09/06/21 11:47 37.7 C H 09/06/21 11:00 84 120/76 88 L 09/06/21 10:00 86 86 L 09/06/21 09:00 88 87 L 09/06/21 08:13 38.0 C H 09/06/21 08:00 88 88 L 09/06/21 07:00 37.9 C H 86 31 H 139/78 89 L 09/06/21 06:53 85 30 H 86 L 09/06/21 06:00 80 86 L 09/06/21 05:00 78 89 L 09/06/21 04:20 73 30 H 91 09/06/21 04:00 37.6 C H 74 91 Lab & Micro Results (Past 24 Hours) RBC 4.91 M/uL (4.7-6.1) 09/06/21 WBC 9.86 K/uL (4.8-10.8) 09/06/21 Hgb 15.3 g/dL (14.0-18.0) 09/06/21 Hct 48.8 % (42-52) 09/06/21 MCV 99.4 fL (80-100) 09/06/21 MCH 31.2 pg (25-34) 09/06/21 MCHC 31.4 g/dL (32-36) L 09/06/21 RDW Standard Deviation 48.1 fL (36.4-46.3) H 09/06/21 RDW Coefficient of Variation 13.2 % (11.5-14.5) 09/06/21 Plt Count 239 K/uL (130-400) 09/06/21 MPV 10.6 fL (7.4-10.4) H 09/06/21 Neutrophils (%) (Auto) 88.1 % 09/06/21 Lymphocytes (%) (Auto) 5.8 % 09/06/21 Monocytes # (Auto) 0.45 K/uL (0.11-0.59) 09/06/21 Eosinophils # (Auto) 0.01 K/uL (0-0.5) 09/06/21 Immature Granulocyte % (Auto) 1.2 % 09/06/21 Neutrophils # (Auto) 8.69 K/uL (1.4-6.5) H 09/06/21 Lymphocytes # (Auto) 0.57 K/uL (1.2-3.4) L 09/06/21 Monocytes # (Auto) 0.45 K/uL (0.11-0.59) 09/06/21 Eosinophils # (Auto) 0.01 K/uL (0-0.5) 09/06/21 Basophils # (Auto) 0.02 K/uL (0-0.2) 09/06/21 Immature Granulocyte # (Auto) 0.12 K/uL (0.00-0.02) H 09/06/21 Na 144 mmol/L (136-145) 09/06/21 K 4.6 mmol/L (3.5-5.1) 09/06/21 Cl 109 mmol/L (98-107) H 09/06/21 CO2 32 mmol/L (21-32) 09/06/21 Anion Gap 3.0 (3-11) 09/06/21 BUN 41 mg/dl (7-18) H 09/06/21 Creatinine 0.81 mg/dl (0.6-1.4) 09/06/21 Estimated GFR ( Amer) 115.1 ml/min 09/06/21 Estimated GFR (Non-Af Amer) 99.4 ml/min 09/06/21 BUN/Creatinine Ratio 50.1 (10-20) H 09/06/21 Glu 158 mg/dl (70-99) H 09/06/21 Ca 9.1 mg/dl (8.5-10.1) 09/06/21 Phosphorus Level 2.1 mg/dl (2.5-4.9) L 09/06/21 Total Bilirubin 0.7 mg/dl (0.2-1) 09/06/21 AST 46 U/L (15-37) H 09/06/21 ALT 69 (12-78) 09/06/21 Alkaline Phosphatase 43 U/L (45-117) L 09/06/21 TP 6.6 gm/dl (6.4-8.2) 09/06/21 Albumin 2.0 gm/dl (3.4-5.0) L 09/06/21 Globulin 4.6 gm/dl (2.5-4.0) H 09/06/21 Albumin/Globulin Ratio 0.4 (0.9-2) L 09/06/21 Mg 3.4 mg/dl (1.8-2.4) H 09/06/21 05:34 09/06/21 Calcium Level 9.1 mg/dl (8.5-10.1) 09/06/21 05:34 09/06/21 Marcelo Test NA 09/06/21 04:24 09/06/21 Microbiology 09/04/21 15:42 Urine Culture - Final Urine,Indwelling Cath Gram positive cocci 09/04/21 17:22 Aerobic Blood Culture - Preliminary Blood No growth in Aerobic bottle after 24 hours. Anaerobic Blood Culture - Preliminary No growth in Anaerobic bottle after 24 hours. 09/04/21 17:20 Aerobic Blood Culture - Preliminary Blood No growth in Aerobic bottle after 24 hours. Anaerobic Blood Culture - Preliminary No growth in Anaerobic bottle after 24 hours. Diagnostic Findings (Past 24 Hours) Chest X-Ray 09/06/21 07:00 XR chest 1V portable HISTORY: 56 years-old Male resp failure acute respiratory failure COMPARISON: Chest radiograph 09/05/2021, CTA chest 09/04/2021 TECHNIQUE: Portable AP view of the chest FINDINGS: The endotracheal tube overlies the midline, 4.3 cm superior to the flaca. Right IJ central venous catheter distal tip projects over the right atrium. Enteric tube courses below the diaphragm. Study is limited secondary to overlying material over the chest. No pneumothorax identified. Interstitial coarsening with patchy bilateral airspace opacities have mildly progressed. Trace pneumomediastinum redemonstrated. Spondylitic spurring of the spine. IMPRESSION: 1. Lines and tubes as above. 2. Mild progression of the bilateral airspace opacities. 3. Trace pneumomediastinum redemonstrated. No pneumothorax identified. ACT 112: Negative or not required by law. The above report was generated using voice recognition software. It may contain grammatical, syntax or spelling errors. Electronically signed by: Murali Chavarria M.D. 09/06/2021 7:44 AM I & O Totals 24 Hours 09/05/21 09/06/21 09/07/21 06:59 06:59 06:59 Intake Total 1820.951 / 2548.078 6548.705 / 1610.705 689.242 / 689.242 Output Total 800 / 800 2700 / 2700 550 / 550 Balance 1020.951 / 1020.951 -1089.295 / -1089.295 139.242 / 139.242 Cumulative 08/30/21 11:53 thru 09/06/21 14:00 Intake Total 7998.573 Output Total 9121 Balance -1127.427 RT Ventilator Mngmt (Last Documented) Ventilator Ordered Settings Ventilator Support Mode Assist Control 09/06/21 12:04 Respiratory Rate 32 09/06/21 14:24 Ventilator Tidal Volume 380 09/06/21 12:04 Setting Minute Ventilation 11.0 09/06/21 12:04 Positive End Expiratory 16 09/06/21 14:24 Pressure Fraction of Inspired Oxygen 100 09/06/21 14:24 Peak Inspiratory Flow 23 09/03/21 15:25 Machine Comment increased peep to 16 09/06/21 06:53 Ventilator - PT Measurements Respiratory Rate 32 Exhaled Tidal Volume 379 Minute Ventilation 11.0 Peak Inspiratory Airway 29 Pressure Plateau Pressure 26 Respiratory Cycle Inspiratory: 1:1.5 Expiratory Ratio Inspiratory Phase Time 0.80 End-Tidal CO2 37 Static Lung Compliance 37.90 Dynamic Lung Compliance 29.15 Normal Static Lung Compliance 47.00 Patient Measurements Comment SPO2 90% after increasing peep to 16 and FIO2 to 100% Coding Level of Care Code Critical Care 1st 30-74 mins Diagnoses Acute hypoxemic respiratory failure due to COVID-19 U07.1; J96.01 Pneumonia due to 2019-nCoV U07.1; J12.82 ARDS (adult respiratory distress syndrome) J80 Time Spent (min) 52
[2021-09-06] MEDS: cefTRIAXone SODIUM 2,000 MG in DEXTROSE 5% 50 ML IV SCH (16:07)
[2021-09-06] MEDS: fentaNYL DRIP 1,250 MCG/250 ML BAG IV SCH (16:07)
[2021-09-06] MEDS: FUROSEMIDE 40 MG/4 ML VIAL IV SCH (16:08)
[2021-09-06 16:25] LABS: iSTAT Arterial Blood Gas HCO3 32 meg/L (19-24); iSTAT Arterial Blood Gas pCO2 59 mmHg (35-46); iSTAT Arterial Blood Gas pH 7.35 (7.35-7.45); iSTAT Arterial Blood Gas pO2 56 mmHg (80-95); iSTAT Carbon Dioxide 34 mmol/L (24-31); iSTAT FiO2 100 %; iSTAT Site Art Line
[2021-09-06 18:08] LABS: iSTAT Arterial Blood Gas HCO3 35 meg/L (19-24); iSTAT Arterial Blood Gas pCO2 62 mmHg (35-46); iSTAT Arterial Blood Gas pH 7.36 (7.35-7.45); iSTAT Arterial Blood Gas pO2 59 mmHg (80-95); iSTAT Carbon Dioxide 36 mmol/L (24-31); iSTAT FiO2 100 %; iSTAT Site Art Line
--- NOTE | 2021-09-06 19:41 | Hospitalist Progress Note ---
Date of Service September 06, 2021 Assessment & Plan (1) Acute hypoxemic respiratory failure due to COVID-19: Plan: Acute hypoxic respiratory failure 2/2 ARDS & COVID-[address], initially intubated 09/03/2021. Remains on Versed, Nimbex, propofol. Norepinephrine as needed. - Unvaccinated -Lasix 40 mg IV daily WBC normal, hemoglobin normal, platelet count normal, troponin negative CXR: Patchy bilateral airspace opacities and interstitial thickening consistent with viral pneumonia on admit - Repeat CXR: With progressive patchy opacities consistent with worsening viral pneumonia. CVA without opacity. CRP previously downtrending, did not meet criteria for baricitinib. CRP remains less than 1 Patient required endotracheal intubation 09/03 Adjunct epoprostenol added per ICU Febrile with staph species and respiratory culture, antibiotics expanded to va ncomycin/cefepime BC 09/04 no growth to date SC: Staph aureus, pansensitive Continues to be febrile, antibiotics narrowed to Rocephin based on sputum culture results. Tylenol, cooling blankets needed. Ventilation strategy and management with ARDS protocol per ICU, appreciate management and recommendations. CXR with no significant change No chronic home medications. Pt denied any chronic medical hx/problems/cardiac disease/pulmonary disease/DM DVT prophylaxis: Lovenox Diet: ETT in place. OG trickle feeds with nutrition consulted. Dispo: Remains critically ill, vent in place in ICU status. CODE STATUS has been discussed between ICU team and patient's brother who are discussing between the family. (2) Pneumonia due to 2019-nCoV: Plan: as above, Admission and Anticipated Discharge Date Admission Date: August 30, 2021 Subjective Intubated and sedated. Some improvement 09/05, then worsening 09/06 and remains intubated. Review of Systems Review of Systems: Unobtainable due to ETT Physical Exam Physical Exam: Patient observed, physical exam deferred in Covid pandemic. Remains mechanically ventilated, RRR. Results & Data Results & Data ([facility]) Vital Signs (Past 12 Hours) Vital Signs Temp Pulse Pulse Resp BP BP Pulse Ox 09/06/21 19:00 105 H 32 H 86 L 09/06/21 18:00 100 H 30 H 134/81 88 L 09/06/21 17:52 102 H 33 H 134/64 87 L 09/06/21 17:00 38.6 C H 98 H 32 H 127/84 92 09/06/21 16:47 95 H 32 H 149/67 H 92 09/06/21 16:26 94 H 33 H 92 09/06/21 16:00 38.5 C H 92 H 32 H 119/73 86 L 09/06/21 15:47 97 H 33 H 130/64 86 L 09/06/21 15:30 38.4 C H 93 H 31 H 87 L 09/06/21 15:18 38.4 C H 91 H 28 H 90 09/06/21 14:24 86 32 H 123/65 90 09/06/21 14:17 38.4 C H 82 23 121/84 91 09/06/21 13:45 88 09/06/21 13:22 85 33 H 122/66 88 L 09/06/21 13:18 38.2 C H 90 23 122/74 85 L 09/06/21 13:04 37.9 C H 93 H 18 09/06/21 12:04 83 32 H 90 09/06/21 12:00 83 89 L 09/06/21 11:47 37.7 C H 09/06/21 11:00 84 120/76 88 L 09/06/21 10:00 86 86 L 09/06/21 09:00 88 87 L 09/06/21 08:13 38.0 C H 09/06/21 08:00 88 88 L PG Care Time/CCT Total # of Minutes Spent Total Time Spent with Patient: Total time spent is greater than 50% in coordination of care (as documented) at patient's floor/unit and/or counseling patient: Coding Level of Care Code 27172 Subseq Hosp Care Lvl 1 Diagnoses Acute hypoxemic respiratory failure due to COVID-19 U07.1; J96.01 Pneumonia due to 2019-nCoV U07.1; J12.82
[2021-09-06] MEDS: MIDAZOLAM HCL 125 MG/250 ML BAG IV SCH (19:51)
[2021-09-07] MEDS: TUBE FEEDING WATER FLUSH OG SCH ×6 (00:12→19:55)
[2021-09-07] MEDS: CISATRACURIUM BESYLATE 40 MG in 0.9 % SODIUM CHLORIDE 80 ML IV SCH ×7 (00:13→23:56)
[2021-09-07] MEDS: NOREPINEPHRINE/D5W 8 MG/508 ML BAG IV SCH (01:15)
[2021-09-07] MEDS ORDERED: METOPROLOL TARTRATE 1 MG/ML VIAL IV STA ×3 (01:20→01:47)
[2021-09-07] MEDS ORDERED: METOPROLOL TARTRATE 1 MG/ML VIAL IV ONE (01:29)
[2021-09-07] MEDS: ACETAMINOPHEN 325 MG TAB PO PRN ×2 (01:56→11:38)
[2021-09-07] MEDS: propofoL 1,000 MG/100 ML VIAL IV SCH ×5 (02:10→23:56)
[2021-09-07] MEDS ORDERED: AMIODARONE IV BOLUS & DRIP IV STA (02:27)
[2021-09-07] MEDS ORDERED: AMIODARONE / D5W 150 MG/100 ML BAG IV STA ×2 (02:27→05:21)
[2021-09-07] MEDS ORDERED: 0.2 MICRON FILTER SET 1 EA IV ONE ×2 (02:27→05:21)
[2021-09-07] MEDS ORDERED: STAT IV Infusion **Titration per Protocol STA ×2 (02:27→07:30)
[2021-09-07] MEDS ORDERED: AMIODARONE / D5W 360 MG/200 ML BAG IV ONE (02:37)
--- NOTE | 2021-09-07 02:42 | Communication Note ---
Date of Service: September 07, 2021 Patient noted to convert into a fib w/ RVR on the monitor with HRs in the 150s- 160s. Thankfully, the patient remains hemodynamically stable. Patient is currently sedated an paralyzed. No changes noted in oxygenation. Orders placed for 5 mg IV metoprolol. After 2 dosed, the patient did have improvement into the 110s. Unfortunately, this was short lived and the patient required a third dose of metoprolol. He did well for several minutes, but his BPs did become soft and HR was in the 130s. At this point, orders placed for amiodarone bolus and gtt. T his did seem to provide great improvement in HR. Patient will continue on amiodarone gtt currently. Will rebolus if needed. I have personally spent 35 minutes of critical care time in the direct man agement of this patient. This is a life/limb threatening event. This includes time spent evaluating patient, direct bedside care, chart review, placing orders, interpretation of diagnostic studies, discussion with consultants, patient, and family members, as well as other required patient management activities. This time is exclusive of all separately billable procedures, and teaching time and separate from and in addition to any other critical care service time. Coding Level of Care Code Critical Care 1st 30-74 mins Time Spent (min) 35
[2021-09-07 04:15] LABS: iSTAT Arterial Blood Gas HCO3 31 meg/L (19-24); iSTAT Arterial Blood Gas pCO2 63 mmHg (35-46); iSTAT Arterial Blood Gas pO2 52 mmHg (80-95); iSTAT Carbon Dioxide 33 mmol/L (24-31); iSTAT FiO2 100 %; iSTAT Site Art Line
[2021-09-07 04:28] LABS: Basophils # (auto) 0.02 K/uL (0-0.2); Basophils % (auto) 0.2 %; Eosinophils # (auto) 0.04 K/uL (0-0.5); Eosinophils % (auto) 0.4 %; Hematocrit (blood only) 48.5 % (42-52); Hemoglobin 15.4 g/dL (14.0-18.0); Immature Granulocytes # (auto) 0.25 K/uL (0.00-0.02); Immature Granulocytes % (auto) 2.5 %; Lymphocytes # (auto) 0.55 K/uL (1.2-3.4); Lymphocytes % (auto) 5.5 %; Mean Corpuscular Hemoglobin 31.3 pg (25-34); Mean Corpuscular Hgb Conc 31.8 g/dL (32-36); Mean Corpuscular Volume 98.6 fL (80-100); Mean Platelet Volume 10.9 fL (7.4-10.4); Monocytes # (auto) 0.54 K/uL (0.11-0.59); Monocytes % (auto) 5.4 %; Neutrophils # (auto) 8.53 K/uL (1.4-6.5); Platelet Count 224 K/uL (130-400); RDW Coefficient of Variation 13.2 % (11.5-14.5); RDW Standard Deviation 47.8 fL (36.4-46.3); Red Blood Count 4.92 M/uL (4.7-6.1); White Blood Count 9.93 K/uL (4.8-10.8)
[2021-09-07 04:47] LABS: Albumin Level 2.1 gm/dl (3.4-5.0); Calcium 9.8 mg/dl (8.5-10.1); Creatinine Clr Calc Pharmacy 93.5 ml/min; Est GFR (African American) 77.9 ml/min; Est GFR (Non-African American) 67.2 ml/min; Potassium 4.7 mmol/L (3.5-5.1)
[2021-09-07 04:54] LABS: Albumin Globulin Ratio 0.4 (0.9-2); Bilirubin,Total 0.5 mg/dl (0.2-1); Globulin 4.8 gm/dl (2.5-4.0); Magnesium 3.5 mg/dl (1.8-2.4); Phosphorus 3.7 mg/dl (2.5-4.9); Total Protein 6.9 gm/dl (6.4-8.2)
[2021-09-07] MEDS: ICU ELECTROLYTE REPLACEMENT PROTOCOL SCH ×2 (05:09→17:52)
[2021-09-07] MEDS: fentaNYL DRIP 1,250 MCG/250 ML BAG IV SCH ×2 (06:19→19:56)
[2021-09-07] MEDS: ARTIFICIAL TEARS OP OINT 3.5 GM TUBE OP SCH ×5 (07:48→23:18)
[2021-09-07] MEDS: ENOXAPARIN INJ 120 MG/0.8 ML SYR SQ SCH ×2 (07:48→19:52)
[2021-09-07] MEDS: MULTI VIT W/MINERALS LIQUID 15 ML UDP NG SCH (07:49)
[2021-09-07] MEDS: LACTULOSE SYRUP 20 GM/30 ML UDC PO SCH (07:49)
[2021-09-07] MEDS: SENNOSIDES 8.8 MG/5 ML UDC PO SCH ×2 (07:49→19:53)
[2021-09-07] MEDS: FUROSEMIDE 40 MG/4 ML VIAL IV SCH ×3 (07:49→19:53)
[2021-09-07] MEDS: ESMOLOL / NSS 2,500 MG/250 ML BAG IV SCH ×3 (07:55→14:12)
[2021-09-07] MEDS: dexAMETHasone 6 MG in SYRINGE 0 ML IV SCH (07:55)
[2021-09-07] MEDS: AMIODARONE / D5W 360 MG/200 ML BAG IV SCH ×2 (07:56→19:52)
--- NOTE | 2021-09-07 08:09 | XRay Report ---
XR chest 1V portable CLINICAL HISTORY: f/u TECHNIQUE: Single frontal radiograph of the chest was obtained. Comparison: Comparison is made to chest one view 07/07/2021 FINDINGS: Lines and tubes are stable. The cardiomediastinal silhouette is stable. Lung volumes are low. Multifo onelia airspace opacities are seen. No evidence of pleural effusion or pneumothorax. IMPRESSION: Lung volumes are low. Multifocal airspace opacities are seen, similar in appearance to prior exam. Li lsava and tubes are stable. ACT 112: Negative or not required by law. Electronically signed by: Alistair Andrews M.D. 09/07/2021 8:08 AM
--- NOTE | 2021-09-07 08:29 | Critical Care Progress Note ---
Date of Service September 07, 2021 Assessment & Plan (1) Acute hypoxemic respiratory failure due to COVID-19: (2) Pneumonia due to 2019-nCoV: (3) ARDS (adult respiratory distress syndrome): Plan: Impression: 56-year-old unvaccinated male with rapidly progressive COVID-19 pneumonitis/ARDS. Intubated 09/03/2021. 24-hour events: Patient developed atrial fibrillation with rapid ventricular response overnight. He received a few doses of IV metoprolol and was started on amiodarone protocol. His heart rate remains elevated in the 120s. Despite this he is maintaining adequate systolic blood pressure without need for vasopressor agents. His oxygen saturations continue to hover around 88 despite maximal ventilatory settings. He remains febrile. Recommendations: 1. Neuro: Continue aggressive sedation protocol with fentanyl Versed and propofol. Restart cis atracurium to promote ventilator synchrony. 2. Cardiovascular: Atrial fibrillation with rapid ventricular response: Continue amiodarone. Increase Lovenox to therapeutic dosing. Start esmolol. Cardiology consultation. Should blood pressure become an issue would have a low threshold for proceeding with synchronized cardioversion. Increase attempts at diuresis 3. Pulmonary: ARDS secondary to novel coronavirus. Failed high flow and noninvasive positive pressure ventilation now intubated. ARDSnet ventilatory strategy. MV D#5. CT angiogram shows no evidence of PE however pneumomediastinum is identified likely secondary to barotrauma and Marlene effect. Continue high FiO2 low PEEP strategy to avoid additional barotrauma. Current vent settings: Assist-control/30/380/16/1.0 with a plateau pressure of 31, most recent blood gas 7.30/63/52. P:F 52 - worse compared to yesterday and consistent with severe ARDS. Based on his clinical decline over the last 24 hours we will decrease tidal volume down to 4 to 5 cc/kg (350 cc) increase respiratory rate to 32 and try and increase PEEP to 18 acknowledging risks of accelerated barotrauma. These changes maintained plateau pressures around 30. No ICU beds at [facility] centers and patients BMI and age likely exclude. BNP normal at 24 and procalcitonin undetectable however respiratory culture did grow a staph species. Patient has failed proning with his last event resulting in oxygen saturations in the 70s. He is also failed inhaled epoprostenol. Given his clinical decline, and escalating CRP and pursue late-phase ARDS dexamethasone (20 mg a day for 5 days followed by 10 mg a day for 5 days. 4. GI: Continue tube feeds. GI prophylaxis. Bowel protocol 5. Renal: Dasilva catheter in place. ICU electrolyte replacement protocol. Lasix yesterday resulted in intake and output being even. Will increase Lasix to twice daily dosing and attempt to get net negative. 6. ID: Persistently febrile but white count remains normal Sensitive staph identified in sputum. Currently on Rocephin. Day #4 antibiotics. Increasing steroids as noted above. He does have gram-positive cocci in his urine. Given his persistent fevers we will recheck cultures at this time. May need to consider changing out his lines. His current vent settings would make bronchoscopy and BAL risky. Check lipase. 7. Endocrine: Glycemic control per ICU protocol 8. Heme-onc: Increase Lovenox to therapeutic dosing given atrial fibrillation Patient's brother, Orion, updated by phone yesterday and will update him again today. He is declined significantly over the last 48 hours and may be progressing to multiorgan system dysfunction. Readdressing CPR would be appropriate. Prognosis unclear but guarded at best. 48 minutes critical care time spent evaluating and managing life-threatening illness including discussions with patient brother, bedside critical care nurse, and respiratory therapy. Patient was reviewed on multidisciplinary rounds. Admission and Anticipated Discharge Date Admission Date: August 30, 2021 Subjective intubated and sedated Review of Systems Review of Systems: Unobtainable due to endotracheal tube Physical Exam Constitutional: + mechanically ventilated Neck: trachea midline, no thyromegaly Respiratory: Auscultation: + crackles and + wheezes Cardiovascular: RRR, no murmur, no edema Gastrointestinal (Abdomen): normal bowel sounds, soft, nontender, no hepatosplenomegaly Musculoskeletal: Extremities: extremities normal to inspection Skin: no rashes, warm and dry Lymphatic: no cervical lymphadenopathy Results & Data Results & Data ([facility]) Vital Signs (Past 12 Hours) Vital Signs Temp Pulse Resp BP Pulse Ox 09/07/21 08:00 122 H 32 H 87 L 09/07/21 06:00 130 H 30 H 87 L 09/07/21 05:00 131 H 30 H 89 L 09/07/21 04:00 38.6 C H 131 H 30 H 88 L 09/07/21 03:00 38.4 C H 117 H 28 H 90 09/07/21 02:00 136 H 27 H 84 L 09/07/21 01:53 122 H 09/07/21 01:49 127 H 09/07/21 01:00 101 H 29 H 89 L 09/07/21 00:00 38.3 C H 100 H 30 H 90 09/06/21 23:00 98 H 33 H 88 L 09/06/21 22:00 38.6 C H 99 H 30 H 156/84 H 89 L 09/06/21 21:00 38.8 C H 101 H 27 H 86 L 09/06/21 20:24 103 H 32 H 88 L Critical Care Results & Data Vital Signs (Past 12 Hours) Vital Signs Temp Pulse Resp BP Pulse Ox 09/07/21 08:00 122 H 32 H 87 L 09/07/21 06:00 130 H 30 H 87 L 09/07/21 05:00 131 H 30 H 89 L 09/07/21 04:00 38.6 C H 131 H 30 H 88 L 09/07/21 03:00 38.4 C H 117 H 28 H 90 09/07/21 02:00 136 H 27 H 84 L 09/07/21 01:53 122 H 09/07/21 01:49 127 H 09/07/21 01:00 101 H 29 H 89 L 09/07/21 00:00 38.3 C H 100 H 30 H 90 09/06/21 23:00 98 H 33 H 88 L 09/06/21 22:00 38.6 C H 99 H 30 H 156/84 H 89 L 09/06/21 21:00 38.8 C H 101 H 27 H 86 L 09/06/21 20:24 103 H 32 H 88 L Lab & Micro Results (Past 24 Hours) RBC 4.92 M/uL (4.7-6.1) 09/07/21 WBC 9.93 K/uL (4.8-10.8) 09/07/21 Hgb 15.4 g/dL (14.0-18.0) 09/07/21 Hct 48.5 % (42-52) 09/07/21 MCV 98.6 fL (80-100) 09/07/21 MCH 31.3 pg (25-34) 09/07/21 MCHC 31.8 g/dL (32-36) L 09/07/21 RDW Standard Deviation 47.8 fL (36.4-46.3) H 09/07/21 RDW Coefficient of Variation 13.2 % (11.5-14.5) 09/07/21 Plt Count 224 K/uL (130-400) 09/07/21 MPV 10.9 fL (7.4-10.4) H 09/07/21 Neutrophils (%) (Auto) 86.0 % 09/07/21 Lymphocytes (%) (Auto) 5.5 % 09/07/21 Monocytes # (Auto) 0.54 K/uL (0.11-0.59) 09/07/21 Eosinophils # (Auto) 0.04 K/uL (0-0.5) 09/07/21 Immature Granulocyte % (Auto) 2.5 % 09/07/21 Neutrophils # (Auto) 8.53 K/uL (1.4-6.5) H 09/07/21 Lymphocytes # (Auto) 0.55 K/uL (1.2-3.4) L 09/07/21 Monocytes # (Auto) 0.54 K/uL (0.11-0.59) 09/07/21 Eosinophils # (Auto) 0.04 K/uL (0-0.5) 09/07/21 Basophils # (Auto) 0.02 K/uL (0-0.2) 09/07/21 Immature Granulocyte # (Auto) 0.25 K/uL (0.00-0.02) H 09/07/21 Na 143 mmol/L (136-145) 09/07/21 K 4.7 mmol/L (3.5-5.1) 09/07/21 Cl 108 mmol/L (98-107) H 09/07/21 CO2 30 mmol/L (21-32) 09/07/21 Anion Gap 5.0 (3-11) 09/07/21 BUN 65 mg/dl (7-18) H 09/07/21 Creatinine 1.20 mg/dl (0.6-1.4) 09/07/21 Estimated GFR ( Amer) 77.9 ml/min 09/07/21 Estimated GFR (Non-Af Amer) 67.2 ml/min 09/07/21 BUN/Creatinine Ratio 54.0 (10-20) H 09/07/21 Glu 185 mg/dl (70-99) H 09/07/21 Ca 9.8 mg/dl (8.5-10.1) 09/07/21 Phosphorus Level 3.7 mg/dl (2.5-4.9) 09/07/21 Total Bilirubin 0.5 mg/dl (0.2-1) 09/07/21 AST 46 U/L (15-37) H 09/07/21 ALT 61 (12-78) 09/07/21 Alkaline Phosphatase 45 U/L (45-117) 09/07/21 TP 6.9 gm/dl (6.4-8.2) 09/07/21 Albumin 2.1 gm/dl (3.4-5.0) L 09/07/21 Globulin 4.8 gm/dl (2.5-4.0) H 09/07/21 Albumin/Globulin Ratio 0.4 (0.9-2) L 09/07/21 Mg 3.5 mg/dl (1.8-2.4) H 09/07/21 04:12 09/07/21 Calcium Level 9.8 mg/dl (8.5-10.1) 09/07/21 04:12 09/07/21 Marcelo Test NA 09/07/21 03:53 09/07/21 Microbiology 09/04/21 17:22 Aerobic Blood Culture - Preliminary Blood No growth in Aerobic bottle after 48 hours. Anaerobic Blood Culture - Preliminary No growth in Anaerobic bottle after 48 hours. 09/04/21 17:20 Aerobic Blood Culture - Preliminary Blood No growth in Aerobic bottle after 48 hours. Anaerobic Blood Culture - Preliminary No growth in Anaerobic bottle after 48 hours. 09/04/21 15:42 Urine Culture - Final Urine,Indwelling Cath Gram positive cocci Diagnostic Findings (Past 24 Hours) Chest X-Ray 09/07/21 07:00 XR chest 1V portable CLINICAL HISTORY: f/u TECHNIQUE: Single frontal radiograph of the chest was obtained. Comparison: Comparison is made to chest one view 07/07/2021 FINDINGS: Lines and tubes are stable. The cardiomediastinal silhouette is stable. Lung volumes are low. Multifocal airspace opacities are seen. No evidence of pleural effusion or pneumothorax. IMPRESSION: Lung volumes are low. Multifocal airspace opacities are seen, similar in appearance to prior exam. Lines and tubes are stable. ACT 112: Negative or not required by law. Electronically signed by: Alistair Andrews M.D. 09/07/2021 8:08 AM I & O Totals 24 Hours 09/06/21 09/07/21 09/08/21 06:59 06:59 06:59 Intake Total 1610.705 / 8510.552 8111.018 / 2377.018 276.115 / 276.115 Output Total 2700 / 2700 1925 / 1925 Balance -1089.295 / -1089.295 452.018 / 452.018 276.115 / 276.115 Cumulative 08/30/21 11:53 thru 09/07/21 07:57 Intake Total 9962.464 Output Total 40214 Balance -538.536 RT Ventilator Mngmt (Last Documented) Ventilator Ordered Settings Ventilator Support Mode Assist Control 09/07/21 08:00 Respiratory Rate 32 09/07/21 08:00 Ventilator Tidal Volume 380 09/07/21 08:00 Setting Minute Ventilation 12 09/07/21 08:00 Positive End Expiratory 16 09/07/21 08:00 Pressure Fraction of Inspired Oxygen 100 09/07/21 08:00 Peak Inspiratory Flow 23 09/03/21 15:25 Machine Comment increased peep to 16 09/06/21 06:53 Ventilator - PT Measurements Respiratory Rate 32 Exhaled Tidal Volume 377 Minute Ventilation 12 Peak Inspiratory Airway 30 Pressure Plateau Pressure 31 Respiratory Cycle Inspiratory: 1:1.9 Expiratory Ratio Inspiratory Phase Time 0.7 End-Tidal CO2 39 Static Lung Compliance 25.13 Dynamic Lung Compliance 26.93 Normal Static Lung Compliance 47.00 Patient Measurements Comment Unable to make ventilator changes based off of ABG results, patient's peaks 30 and plats 26- 27. JUAN R Aviles notified. Coding Level of Care Code Critical Care 1st 30-74 mins Diagnoses Acute hypoxemic respiratory failure due to COVID-19 U07.1; J96.01 Pneumonia due to 2019-nCoV U07.1; J12.82 ARDS (adult respiratory distress syndrome) J80
[2021-09-07 09:45] LABS: iSTAT Arterial Blood Gas HCO3 32 meg/L (19-24); iSTAT Arterial Blood Gas pCO2 66 mmHg (35-46); iSTAT Arterial Blood Gas pO2 51 mmHg (80-95); iSTAT Carbon Dioxide 34 mmol/L (24-31); iSTAT FiO2 100 %; iSTAT Site Art Line
[2021-09-07] MEDS: PEPTAMEN INTENSE VHP 1.0 CAL 1,000 ML BAG OG SCH (09:56)
[2021-09-07] MEDS: PROPOFOL BOLUS FROM BAG IV PRN ×2 (09:57→18:02)
[2021-09-07] MEDS: MIDAZOLAM HCL 125 MG/250 ML BAG IV SCH ×2 (10:29→12:25)
[2021-09-07] MEDS: PANTOprazole 40 MG in SYRINGE 0 ML IV SCH (11:35)
[2021-09-07] MEDS ORDERED: Nursing to Pharmacy Communication SCH (11:45)
[2021-09-07] MEDS ORDERED: dexAMETHasone 14 MG in DEXTROSE 5% 25 ML IV ONE (12:00)
[2021-09-07] MEDS ORDERED: METHYLNALTREXONE BROMIDE 12 MG/0.6 ML VIAL SQ ONE (12:00)
[2021-09-07] MEDS: INSULIN ASPART PER UNIT SC SCH ×3 (13:00→23:28)
--- NOTE | 2021-09-07 13:48 | Cardiology Consultation ---
Date of Consultation September 07, 2021 Assessment & Plan (1) Paroxysmal atrial fibrillation: (2) Acute hypoxemic respiratory failure due to COVID-19: (3) ARDS (adult respiratory distress syndrome): Patient converted back to sinus rhythm 09/07/2021 at 10:41 AM while on amiodarone infusion and esmolol infusion. Titrate esmolol down, perhaps wean to off. Continue IV amiodarone infusion for now. Patient is on multiple IV infusions including sedation, paralytic, amiodarone. Agree with full anticoagulation dose of Lovenox 120 mg subcutaneous every 12 for stroke prophylaxis and VT prophylaxis. I agree with furosemide. Formal echocardiogram and EKG not performed as I do not think the results would change the management at this time. History of Present Illness Reason for Consultation: Atrial fibrillation with rapid ventricular response Requesting Physician: Dr Cardozo Attending Physician: David Dunn MD History of Present Illness Mr Chavez is a 56-year-old male seen in cardiology consultation per the request of Dr. Cardozo for the evaluation of atrial fibrillation with rapid ventricular response. History obtained by review of patient's chart, discussion with patient's nurse as he is currently sedated and on mechanical ventilation in ICU room 105. Patient initially presented via the emergency department on 08/30/2021 with complaints of progressive shortness of breath and loss of taste and smell. He was diagnosed with SARS-CoV-2 related pneumonia. He was treated with supplemental oxygen, remdesivir and dexamethasone. Due to progressive hypoxemic respiratory failure he underwent endotracheal intubation on 09/03/2021. His ongoing issues with regards to severe ARDS, with arterial blood gas performed this morning revealing PO2 of 51 despite mechanical ventilation with FiO2 of 100%. Chest x-ray reveals multifocal airspace opacities. Early this morning at approximately 1:20 AM, patient was noted to go into a rapid atrial fibrillation with rates in excess of 150 bpm. He received IV metoprolol 5 mg x 3 doses, and amiodarone infusion was subsequently started 2:27 AM. Esmolol was subsequently initiated this morning at around 8 AM. Per my discussion with his nurse, his rates improved on this medication, and shortly after the dose was titrated to 100 mcg/kg/min he converted spontaneously to sinus rhythm at 10:41 AM as noted on telemetry without pause or bradycardia. At the time my assessment sinus rhythm in the 70s was noted. Patient remains febrile, most recent temperature 39.4 C. Allergies Allergy/AdvReac Type Severity Reaction Status Date / Time levofloxacin [From Levaquin] AdvReac Intermediate BAD Verified 08/30/21 21:04 HEADACHE Home Medications Medication Instructions Recorded Confirmed Type No Known Home Medications 08/30/21 08/30/21 History Patient History Medical History Dental caries Generalized weakness Hyperbilirubinemia Surgical History No pertinent past surgical history Social History Smoking Status: Never smoker Second Hand Exposure: No; Do You Dip or Chew Tobacco: No; Tobacco Cessation Education Requested by Patient: No Hx Alcohol Use: No Hx Substance Use: No Preferred Language: Cameroonian Communication Ability: Unable Surgeon'S Assistant Required: No Beliefs That Will Affect Care: None Current Living Situation: Alone Other Information That Helps Us Care for You: No Feels Safe at Home: Yes Safety Concerns: Feels Safe At This Time Assistive Devices: Oxygen - Continuous Review of Systems 2 Review of Systems: Unobtainable due to endotracheal tube and Unobtainable due to reduced consciousness Physical Exam Physical Exam: Temp Pulse Resp BP Pulse Ox 39.4 C H 74 32 H 124/76 92 09/07/21 12:00 09/07/21 12:00 09/07/21 12:00 09/07/21 12:00 09/07/21 12:00 Constitutional: On mechanical ventilation, sedated with fentanyl, midazolam, and paralyzed Respiratory: Coarse breath sounds Cardiovascular: Rate/Rhythm: regular rate and regular rhythm Results & Data ([facility]) Vital Signs (Past 12 Hours) Vital Signs Temp Pulse Resp BP Pulse Ox 09/07/21 12:00 39.4 C H 73 32 H 124/76 92 09/07/21 11:00 39.3 C H 73 31 H 131/77 92 09/07/21 10:08 109 H 34 H 90 09/07/21 10:00 39.3 C H 114 H 32 H 121/81 90 09/07/21 09:00 39.2 C H 116 H 28 H 124/87 89 L 09/07/21 08:00 39.1 C H 132 H 30 H 130/73 88 L 09/07/21 07:00 39 C H 139 H 30 H 140/76 87 L 09/07/21 06:00 130 H 30 H 87 L 09/07/21 05:00 131 H 30 H 89 L 09/07/21 04:00 38.6 C H 131 H 30 H 88 L 09/07/21 03:00 38.4 C H 117 H 28 H 90 09/07/21 02:00 136 H 27 H 84 L 09/07/21 01:53 122 H 09/07/21 01:49 127 H
[2021-09-07] MEDS: METOPROLOL TARTRATE 25 MG TAB PO SCH ×2 (14:23→19:54)
[2021-09-07] MEDS: cefTRIAXone SODIUM 2,000 MG in DEXTROSE 5% 50 ML IV SCH (16:19)
--- NOTE | 2021-09-07 17:06 | Communication Note ---
Date of Service: September 07, 2021 EKG performed 09/07/2021 reveals sinus rhythm 80 bpm, normal EKG, corrected QT interval normal 372 ms. Echocardiogram technically limited. As previously described in critical care notes, patient has pneumomediastinum due to barotrauma. Blood pressure remained stable. Prognosis poor.
--- NOTE | 2021-09-07 19:48 | Hospitalist Progress Note ---
Date of Service September 07, 2021 Assessment & Plan (1) Acute hypoxemic respiratory failure due to COVID-19: Plan: Acute hypoxic respiratory failure 2/2 ARDS & COVID-[address], initially intubated 09/03/2021. Remains on Versed, Nimbex, propofol. Norepinephrine - Unvaccinated No leukocytosis ABG 7.3/66/51/32 Admit CXR: Patchy bilateral airspace opacities and interstitial thickening consistent with viral pneumonia on admit - 09/07 CXR: Lung volumes are low. Multifocal airspace opacities are seen, similar in appearance to prior exam. Lines and tubes are stable. CRP previously downtrending, did not meet criteria for baricitinib. Patient required endotracheal intubation 09/03 Febrile with staph species and respiratory culture, antibiotics expanded to vancomycin/cefepime BC 09/04 no growth to date SC: Staph aureus, pansensitive. On Rocephin, abx initiated 09/04 Ventilation strategy and management with ARDS protocol per ICU, appreciate management and recommendations. Started late ARDS Decadron 20mg x5 days, 10mg x5 days - Afib as below - No chronic home medications. Pt denied any chronic medical hx/problems/cardiac disease/pulmonary disease/DM APIARIST (2) Paroxysmal atrial fibrillation: Plan: - New Afib - Lovenox 120mg Q12H - Cardiology consulted. - IV Amiodarone - TTE technically limited, inadequate visualization - Converted to nsr 09/07 (3) Pneumonia due to 2019-nCoV: Plan: as above, Plan: DVT prophylaxis: Lovenox Diet: ETT in place. OG trickle feeds with nutrition consulted. Dispo: Remains critically ill, vent in place in ICU status. CODE STATUS has been discussed between ICU team and patient's brother who are discussing between the family. Admission and Anticipated Discharge Date Admission Date: August 30, 2021 Subjective Limited by intubation and sedation. TTE technically limited with inadequate visualization of right/left ventricle. Review of Systems Review of Systems: Unobtainable due to endotracheal tube Physical Exam Physical Exam: Patient observed, physical exam deferred in Covid pandemic. Remains mechanically ventilated, RRR. Results & Data Results & Data ([facility]) Vital Signs (Past 12 Hours) Vital Signs Temp Pulse Resp BP Pulse Ox 09/07/21 18:00 87 32 H 146/82 H 91 09/07/21 17:00 88 32 H 153/82 H 91 09/07/21 16:00 85 32 H 150/83 H 92 09/07/21 15:01 81 35 H 91 09/07/21 15:00 81 32 H 149/83 H 91 09/07/21 14:00 75 28 H 146/83 H 91 09/07/21 13:00 39.3 C H 74 32 H 134/77 91 09/07/21 12:00 39.4 C H 73 32 H 124/76 92 09/07/21 11:00 39.3 C H 73 31 H 131/77 92 09/07/21 10:08 109 H 34 H 90 09/07/21 10:00 39.3 C H 114 H 32 H 121/81 90 09/07/21 09:00 39.2 C H 116 H 28 H 124/87 89 L 09/07/21 08:00 39.1 C H 132 H 30 H 130/73 88 L PG Care Time/CCT Total # of Minutes Spent Total Time Spent with Patient: Total time spent is greater than 50% in coordination of care (as documented) at patient's floor/unit and/or counseling patient: Coding Level of Care Code 85500 Subseq Hosp Care Lvl 1 Diagnoses Acute hypoxemic respiratory failure due to COVID-19 U07.1; J96.01 Pneumonia due to 2019-nCoV U07.1; J12.82 Paroxysmal atrial fibrillation I48.0
[2021-09-07] MEDS: ACETAMINOPHEN SUSP 325 MG/10.15 ML UDC OG PRN (23:17)
[2021-09-08] MEDS: PEPTAMEN INTENSE VHP 1.0 CAL 1,000 ML BAG OG SCH (01:54)
[2021-09-08] MEDS: METOPROLOL TARTRATE 25 MG TAB PO SCH ×3 (01:54→13:48)
[2021-09-08] MEDS: CISATRACURIUM BESYLATE 40 MG in 0.9 % SODIUM CHLORIDE 80 ML IV SCH ×9 (01:55→16:12)
[2021-09-08] MEDS: TUBE FEEDING WATER FLUSH OG SCH ×5 (02:53→16:12)
[2021-09-08] MEDS: NOREPINEPHRINE/D5W 8 MG/508 ML BAG IV SCH ×3 (02:54→16:55)
[2021-09-08] MEDS: ACETAMINOPHEN SUSP 325 MG/10.15 ML UDC OG PRN (03:49)
[2021-09-08] MEDS: ARTIFICIAL TEARS OP OINT 3.5 GM TUBE OP SCH ×4 (04:58→15:06)
[2021-09-08 04:59] LABS: iSTAT Arterial Blood Gas HCO3 33 meg/L (19-24); iSTAT Arterial Blood Gas pCO2 90 mmHg (35-46); iSTAT Arterial Blood Gas pH 7.18 (7.35-7.45); iSTAT Arterial Blood Gas pO2 57 mmHg (80-95); iSTAT Carbon Dioxide 36 mmol/L (24-31); iSTAT FiO2 100 %; iSTAT Site Art Line
[2021-09-08] MEDS: INSULIN ASPART PER UNIT SC SCH ×2 (05:02→12:33)
[2021-09-08 05:57] LABS: Hematocrit (blood only) 49.8 % (42-52); Hemoglobin 15.2 g/dL (14.0-18.0); Mean Corpuscular Hemoglobin 31.3 pg (25-34); Mean Corpuscular Hgb Conc 30.5 g/dL (32-36); Mean Corpuscular Volume 102.5 fL (80-100); Mean Platelet Volume 11.8 fL (7.4-10.4); Nucleated RBC # (auto) 0.08 K/uL (0-0); Nucleated RBC % (auto) 0.5 %; Platelet Count 260 K/uL (130-400); RDW Coefficient of Variation 13.6 % (11.5-14.5); Red Blood Count 4.86 M/uL (4.7-6.1); White Blood Count 16.55 K/uL (4.8-10.8)
[2021-09-08] MEDS: ICU ELECTROLYTE REPLACEMENT PROTOCOL SCH ×2 (06:25→16:12)
[2021-09-08 06:33] LABS: BUN Creatinine Ratio 49.1 (10-20); Calcium 7.4 mg/dl (8.5-10.1); Creatinine Clr Calc Pharmacy 80.1 ml/min; Est GFR (African American) 64.6 ml/min; Est GFR (Non-African American) 55.8 ml/min; Magnesium 2.4 mg/dl (1.8-2.4); Phosphorus 3.2 mg/dl (2.5-4.9); Potassium 4.3 mmol/L (3.5-5.1)
[2021-09-08 07:01] LABS: ANC (manual) 7.56 K/uL (1.4-6.5); Lymphocytes # (manual) 2.28 K/uL (1.2-3.4); Lymphocytes % (manual) 13.8 %; Metamyelocytes # (manual) 0.71 K/uL (0-0); Metamyelocytes % (manual) 4.3 %; Myelocytes # (manual) 1.57 K/uL (0-0); Myelocytes % (manual) 9.5 %; Neutrophils # (manual) 7.56 K/uL (1.4-6.5); Neutrophils % (manual) 45.7 %; Reactive Lymphocytes # (manual) 4.42 K/uL; Reactive Lymphocytes % (manual) 26.7 %
[2021-09-08] MEDS: LACTULOSE SYRUP 20 GM/30 ML UDC PO SCH (08:03)
[2021-09-08] MEDS: SENNOSIDES 8.8 MG/5 ML UDC PO SCH (08:03)
[2021-09-08] MEDS: propofoL 1,000 MG/100 ML VIAL IV SCH ×4 (08:03→12:02)
[2021-09-08] MEDS: MULTI VIT W/MINERALS LIQUID 15 ML UDP NG SCH (08:04)
[2021-09-08] MEDS: FUROSEMIDE 40 MG/4 ML VIAL IV SCH (08:04)
[2021-09-08] MEDS: ENOXAPARIN INJ 120 MG/0.8 ML SYR SQ SCH (08:04)
[2021-09-08] MEDS: AMIODARONE / D5W 360 MG/200 ML BAG IV SCH (08:06)
--- NOTE | 2021-09-08 08:51 | XRay Report ---
XR chest 1V portable CLINICAL HISTORY: Follow-up bilateral interstitial and alveolar opacities. COMPARISON STUDY: 09/07/2021 TECHNIQUE: 1 view of the chest FINDINGS: Single frontal view of the chest demonstrates the cardiomediastinal silhouette to be within normal li mits. However, there has been interval development of pneumomediastinum and pneumopericardium with ai r extending into the neck and extensive subcutaneous emphysema now seen as well. Tubes and catheters appear unchanged. There are again diffuse interstitial and alveolar opacities present bilaterally characteristic of vir al type pneumonitis and Covid pneumonia. There is no evidence for pleural effusion. There is no evide nce for vascular congestion. There is no acute osseous pathology. IMPRESSION: 1. Interval development of pneumomediastinum and pneumopericardium with extensive subcutaneous emphys low extending into the neck and chest wall. 2. Tubes and catheters appear unchanged. 3. Extensive interstitial and alveolar opacities are again seen bilaterally characteristic of Covid p neumonia. ACT 112: Negative or not required by law. Electronically signed by: Aron Felix M.D. 09/08/2021 8:50 AM
[2021-09-08] MEDS ORDERED: dexAMETHasone 20 MG in SYRINGE 0 ML IV SCH (09:00)
[2021-09-08] MEDS ORDERED: ICU PROTOCOL FOR HYPERGLYCEMIA SCH (09:00)
[2021-09-08] MEDS ORDERED: dexAMETHasone 20 MG in DEXTROSE 5% 25 ML IV SCH (09:00)
--- NOTE | 2021-09-08 09:46 | Critical Care Progress Note ---
Date of Service September 08, 2021 Assessment & Plan (1) Acute hypoxemic respiratory failure due to COVID-19: (2) Pneumonia due to 2019-nCoV: (3) ARDS (adult respiratory distress syndrome): Plan: Impression: 56-year-old unvaccinated male with rapidly progressive COVID-19 pneumonitis/ARDS. Intubated 09/03/2021. 24-hour events: Patient's A. fib converted back to sinus with esmolol and amiodarone. Cardiology consultation completed. He was fully anticoagulated with Lovenox. He had escalating requirements and his oxygen then higher pressures. He is developed significant barotrauma with pneumomediastinum and significant subcutaneous emphysema extending into the neck and bilateral shoulders. Recommendations: 1. Neuro: Continue aggressive sedation protocol with fentanyl Versed and propofol. Continue cis atracurium to promote ventilator synchrony. 2. Cardiovascular: Atrial fibrillation with rapid ventricular response now sinus rhythm. Continue amiodarone. Started low-dose beta-jesus. Continue Lovenox at therapeutic dosing. Unable to diurese at this point. Echo with poor windows but IVC did not appear significantly dilated 3. Pulmonary: ARDS secondary to novel coronavirus. Failed high flow and noninvasive positive pressure ventilation now intubated. ARDSnet ventilatory strategy. MV D#5. CT angiogram shows no evidence of PE however pneumomediastinum is identified likely secondary to barotrauma and Marlene effect. Continue high FiO2 low PEEP strategy to avoid additional barotrauma but this appears to have been unsuccessful based on significant subcutaneous emphysema and pneumomediastinum. Current vent settings: Assist- control/28/350/18/1.0 with a plateau pressure of 29, most recent blood gas 7.18/90/57. P:F 52 - worse compared to yesterday and consistent with severe ARDS. Based on his clinical decline over the last 24 hours we will decrease tidal volume down to 4 to 5 cc/kg (350 cc) increase respiratory rate to 32 and try and increase PEEP to 18 acknowledging risks of accelerated barotrauma. These changes maintained plateau pressures around 30. No ICU beds at ECMO centers and patients BMI and age likely exclude. BNP normal at 24 and procalcitonin undetectable however respiratory culture did grow a staph species. Patient has failed proning with his last event resulting in oxygen saturations in the 70s. He is also failed inhaled epoprostenol. Given his clinical decline, and escalating CRP and pursue late-phase ARDS dexamethasone (20 mg a day for 5 days followed by 10 mg a day for 5 days. We can no longer oxygenate or ventilate the patient at this point time. I think we have reached the limit of what we can feasibly do at this point in time 4. GI: Continue tube feeds. GI prophylaxis. Bowel protocol 5. Renal: Dasilva catheter in place. ICU electrolyte replacement protocol. Lasix yesterday resulted in intake and output being even. Will increase Lasix to twice daily dosing and attempt to get net negative. 6. ID: Persistently febrile but white count remains normal Sensitive staph identified in sputum. Currently on Rocephin. Day #5 antibiotics. Increasing steroids as noted above. He does have gram-positive cocci in his urine. Given his persistent fevers we will recheck cultures at this time. May need to consider changing out his lines. His current vent settings would make bronchoscopy and BAL risky. Check lipase. 7. Endocrine: Glycemic control per ICU protocol 8. Heme-onc: Increase Lovenox to therapeutic dosing given atrial fibrillation Patient's brother, Orion, updated today. Patient is not making any progress and is actually clinically worse. Orion understands the implications. We discussed CODE STATUS. He agrees that CPR would not be beneficial and likely futile. I offered him the opportunity to see the patient through the window but he declines currently. I do not think this looks to be a salvageable condition and I suspect the patient's likely going to pass away due to his illness. If his condition should clinically worsen, would have low threshold for potentially transitioning to palliative care interventions 50 minutes critical care time spent evaluating and managing life-threatening illness including discussions with patient brother, bedside critical care nurse, and respiratory therapy. Patient was reviewed on multidisciplinary rounds. Admission and Anticipated Discharge Date Admission Date: August 30, 2021 Subjective Intubated sedated and paralyzed Review of Systems Review of Systems: Unobtainable due to endotracheal tube Physical Exam Constitutional: + ill appearing and + mechanically ventilated Neck: trachea midline, no thyromegaly Significant subcutaneous emphysema extending throughout the neck and anterior chest Respiratory: normal respiratory effort Auscultation: + crackles; no wheezes Cardiovascular: RRR, no murmur, no edema Gastrointestinal (Abdomen): normal bowel sounds, soft, nontender, no hepatosplenomegaly Musculoskeletal: Extremities: extremities normal to inspection Skin: no rashes, warm and dry Lymphatic: no cervical lymphadenopathy Results & Data Results & Data ([facility]) Vital Signs (Past 12 Hours) Vital Signs Temp Pulse Resp Pulse Ox 09/08/21 07:00 103 H 09/08/21 06:00 107 H 28 H 89 L 09/08/21 05:00 104 H 35 H 89 L 09/08/21 04:00 40.8 C H 103 H 32 H 89 L 09/08/21 03:00 94 H 32 H 89 L 09/08/21 02:58 91 H 32 H 89 L 09/08/21 02:00 120 H 32 H 88 L 09/08/21 01:00 118 H 32 H 89 L 09/08/21 00:00 40.3 C H 117 H 32 H 89 L 09/07/21 23:35 118 H 33 H 90 09/07/21 23:00 112 H 32 H 89 L 09/07/21 22:00 93 H 32 H 90 Critical Care Results & Data Vital Signs (Past 12 Hours) Vital Signs Temp Pulse Resp Pulse Ox 09/08/21 07:00 103 H 09/08/21 06:00 107 H 28 H 89 L 09/08/21 05:00 104 H 35 H 89 L 09/08/21 04:00 40.8 C H 103 H 32 H 89 L 09/08/21 03:00 94 H 32 H 89 L 09/08/21 02:58 91 H 32 H 89 L 09/08/21 02:00 120 H 32 H 88 L 09/08/21 01:00 118 H 32 H 89 L 09/08/21 00:00 40.3 C H 117 H 32 H 89 L 09/07/21 23:35 118 H 33 H 90 09/07/21 23:00 112 H 32 H 89 L 09/07/21 22:00 93 H 32 H 90 Lab & Micro Results (Past 24 Hours) RBC 4.86 M/uL (4.7-6.1) 09/08/21 WBC 16.55 K/uL (4.8-10.8) H 09/08/21 Hgb 15.2 g/dL (14.0-18.0) 09/08/21 Hct 49.8 % (42-52) 09/08/21 MCV 102.5 fL (80-100) H 09/08/21 MCH 31.3 pg (25-34) 09/08/21 MCHC 30.5 g/dL (32-36) L 09/08/21 RDW Standard Deviation 51.0 fL (36.4-46.3) H 09/08/21 RDW Coefficient of Variation 13.6 % (11.5-14.5) 09/08/21 Plt Count 260 K/uL (130-400) 09/08/21 MPV 11.8 fL (7.4-10.4) H 09/08/21 Nucleated Red Blood Cells % (auto) 0.5 % 09/08/21 Nucleated RBC Absolute Count (auto) 0.08 K/uL (0-0) H 09/08/21 ANC 7.56 K/uL (1.4-6.5) H 09/08/21 ALC 6.70 K/uL (1.2-3.4) H 09/08/21 Neutrophils % (Manual) 45.7 % 09/08/21 Lymphocytes % (Manual) 13.8 % 09/08/21 Reactive Lymphocytes % (Manual) 26.7 % 09/08/21 Metamyelocytes % (manual) 4.3 % 09/08/21 Myelocytes % (Manual) 9.5 % 09/08/21 Neutrophils # (Manual) 7.56 K/uL (1.4-6.5) H 09/08/21 Lymphocytes # (Manual) 2.28 K/uL (1.2-3.4) 09/08/21 Reactive Lymphocytes # 4.42 K/uL 09/08/21 Metamyelocytes # (Manual) 0.71 K/uL (0-0) H 09/08/21 Myelocytes # (Manual) 1.57 K/uL (0-0) H 09/08/21 Na 149 mmol/L (136-145) H 09/08/21 K 4.3 mmol/L (3.5-5.1) 09/08/21 Cl 116 mmol/L (98-107) H 09/08/21 CO2 29 mmol/L (21-32) 09/08/21 Anion Gap 4.0 (3-11) 09/08/21 BUN 69 mg/dl (7-18) H 09/08/21 Creatinine 1.40 mg/dl (0.6-1.4) 09/08/21 Estimated GFR ( Amer) 64.6 ml/min 09/08/21 Estimated GFR (Non-Af Amer) 55.8 ml/min 09/08/21 BUN/Creatinine Ratio 49.1 (10-20) H 09/08/21 Glu 240 mg/dl (70-99) H 09/08/21 Ca 7.4 mg/dl (8.5-10.1) L 09/08/21 Phosphorus Level 3.2 mg/dl (2.5-4.9) 09/08/21 Mg 2.4 mg/dl (1.8-2.4) 09/08/21 04:48 09/08/21 Calcium Level 7.4 mg/dl (8.5-10.1) L 09/08/21 04:48 09/08/21 Marcelo Test NA 09/08/21 04:24 09/08/21 Microbiology 09/07/21 10:10 Gram Stain - Final Sputum,Vent Suction Sputum Culture - Preliminary Staphylococcus species Diagnostic Findings (Past 24 Hours) Chest X-Ray 09/08/21 07:00 XR chest 1V portable CLINICAL HISTORY: Follow-up bilateral interstitial and alveolar opacities. COMPARISON STUDY: 09/07/2021 TECHNIQUE: 1 view of the chest FINDINGS: Single frontal view of the chest demonstrates the cardiomediastinal silhouette to be within normal limits. However, there has been interval development of pneumomediastinum and pneumopericardium with air extending into the neck and extensive subcutaneous emphysema now seen as well. Tubes and catheters appear unchanged. There are again diffuse interstitial and alveolar opacities present bilaterally characteristic of viral type pneumonitis and Covid pneumonia. There is no evidence for pleural effusion. There is no evidence for vascular congestion. There is no acute osseous pathology. IMPRESSION: 1. Interval development of pneumomediastinum and pneumopericardium with extensive subcutaneous emphysema extending into the neck and chest wall. 2. Tubes and catheters appear unchanged. 3. Extensive interstitial and alveolar opacities are again seen bilaterally characteristic of Covid pneumonia. ACT 112: Negative or not required by law. Electronically signed by: Aron Felix M.D. 09/08/2021 8:50 AM I & O Totals 24 Hours 09/07/21 09/08/21 09/09/21 06:59 06:59 06:59 Intake Total 2377.018 / 2377.018 4250.617 / 4250.617 381.623 / 381.623 Output Total 1925 / 1925 2550 / 2550 Balance 452.018 / 923.426 6452.617 / 1700.617 381.623 / 381.623 Cumulative 08/30/21 11:53 thru 09/08/21 08:03 Intake Total 43524.589 Output Total 90140 Balance 1267.589 RT Ventilator Mngmt (Last Documented) Ventilator Ordered Settings Ventilator Support Mode Assist Control 09/08/21 04:00 Respiratory Rate 28 09/08/21 06:00 Ventilator Tidal Volume 350 09/08/21 04:00 Setting Minute Ventilation 10.9 09/08/21 02:58 Positive End Expiratory 18 09/08/21 04:00 Pressure Fraction of Inspired Oxygen 100 09/08/21 04:00 Peak Inspiratory Flow 23 09/03/21 15:25 Machine Comment increased peep to 16 09/06/21 06:53 Ventilator - PT Measurements Respiratory Rate 28 Exhaled Tidal Volume 351 Minute Ventilation 10.9 Peak Inspiratory Airway 31 Pressure Plateau Pressure 28.6 Respiratory Cycle Inspiratory: 1:.7 Expiratory Ratio Inspiratory Phase Time 0.70 End-Tidal CO2 59 Static Lung Compliance 33.11 Dynamic Lung Compliance 27.00 Normal Static Lung Compliance 47.00 Patient Measurements Comment Unable to make ventilator changes based off of ABG results, patient's peaks 30 and plats 26- 27. JUAN R Aviles notified. Coding Level of Care Code Critical Care 1st 30-74 mins Diagnoses Acute hypoxemic respiratory failure due to COVID-19 U07.1; J96.01 Pneumonia due to 2019-nCoV U07.1; J12.82 ARDS (adult respiratory distress syndrome) J80 Time Spent (min) 50
--- NOTE | 2021-09-08 10:18 | Electrocardiogram Report ---
Test Reason : Blood Pressure : / mmHG Vent. Rate : 088 BPM Atrial Rate : 088 BPM P-R Int : 144 ms QRS Dur : 082 ms QT Int : 308 ms P-R-T Axes : 029 034 048 degrees QTc Int : 372 ms Normal sinus rhythm Normal ECG When compared with ECG of 30-AUG-2021 16:03, No significant change was found Confirmed by Rai Trevino ([id number]) on 09/08/2021 10:17:36 AM Referred By: REFERRED SELF Confirmed By:Rai Trevino
[2021-09-08] MEDS: fentaNYL DRIP 1,250 MCG/250 ML BAG IV SCH ×2 (10:29→10:30)
[2021-09-08] MEDS: PANTOprazole 40 MG in SYRINGE 0 ML IV SCH (12:01)
[2021-09-08] MEDS ORDERED: VANCOMYCIN CONSULT ACTIVE PRN (12:17)
[2021-09-08] MEDS ORDERED: VANCOMYCIN HCL 2,750 MG in SODIUM CHLORIDE 0.9% 500 ML IV STA (12:31)
--- NOTE | 2021-09-08 14:05 | Pharmacy Report ---
Pharmacy Vanc AUC Short Note - Date of Service September 08, 2021 - Assessment & Plan Assessment 56 year old M receiving IV Vancomycin and Ceftriaxone (not a consult) for treatment of bacteremia (G+ cocci in clusters growing in 1 of 2 blood cultures); Staph also growing in sputum culture. Day # 1 of antimicrobial therapy. * Vancomycin being added to Ceftriaxone as patient remains febrile; G+ cocci in clusters also now growing in 1 of 2 blood cultures. Leukocytosis noted in today's labs. * sCr = 1.4 mg/dL with estimated CrCl ~80 mL/min. Estimated pharmacokinetic parameters: * Ke ~0.071/hr; T1/2 ~9.6 hrs Plan Vancomycin * AUC/LAMONT is the preferred PK/PD target for vancomycin * AUC guided dosing is effective and associated with decreased risk of nephrotoxicity compared to traditional trough targets * Given bacteremia indication, will dose aggressively with Vancomycin 1500mg (~12mg/kg) IV q12 (this is a much higher dose than recommended by [facility], but want to achieve therapeutic concentrations earlier and then back off on dosing regimen). He is at risk for drug accumulation due to obesity (BMI 39.2kg/m2). Therefore will check an early trough prior to steady state as Vancomycin kinetics is unpredictable in morbidly obese. * Target AUC/LAMONT is 400-600 mg/L.hr with target trough 15-20 mcg/mL * Trough level ordered for: 09/10/21 @ 0130 * Close monitoring of Vancomycin needed * Consider switching to Daptomycin Pharmacy will continue to follow and will adjust dose/frequency as necessary. Thank you.
[2021-09-08] MEDS: cefTRIAXone SODIUM 2,000 MG in DEXTROSE 5% 50 ML IV SCH (16:12)
[2021-09-08] MEDS ORDERED: ONDANSETRON INJ 2 MG/ML 2 ML VIAL IV PRN (18:13)
[2021-09-08] MEDS ORDERED: ONDANSETRON 4 MG OD TAB SL PRN (18:13)
[2021-09-08] MEDS ORDERED: LORazepam 0.5 MG TAB PO PRN (18:13)
[2021-09-08] MEDS ORDERED: LORazepam 0.5 MG/1 ML VIAL IV PRN (18:13)
--- NOTE | 2021-09-08 18:13 | Communication Note ---
Date of Service: September 08, 2021 Patient status is clinically deteriorated overnight. We are unable to keep his oxygen level above 80 to 83% at this point time. He is also required initiation of high-dose norepinephrine to try and maintain systolic blood pressures. I updated the patient's brother, Orion, again today. I advised him that the patient is clinically deteriorating. His current numbers would suggest that this is not salvageable. We are unable to maintain an appropriate level of oxygenation. In addition he now appears to be septic with high-dose pressors. I do not think this is survivable. We had already changed his CODE STATUS to DO NOT RESUSCITATE. We discussed transition to full palliative care measures which I think is reasonable at this point in time given the patient's clinical decline. Orion was appropriately emotional about the loss of his brother but understands and states his brother.want to be maintained in an artificial state like this. We will discontinue neuromuscular blockade and once it is off and [id number] is back, propofol can be discontinued the patient will be extubated on fentanyl and Versed titrated to patient comfort. Anticipate the patient should in short order. Discussed with bedside critical care nurse Additional critical care time 45 minutes Coding Level of Care Code Critical Care valente addt'l 30 min
--- NOTE | 2021-09-08 19:42 | Death Pronouncement Note ---
Date of Service September 08, 2021 Pronouncement Note Admission Date Admission Date: August 30, 2021 Date and Time of Date of : 09/08/21 Time of : 19:30 Contributing Factors (1) Acute hypoxemic respiratory failure due to COVID-19: (2) Pneumonia due to 2019-nCoV: (3) ARDS (adult respiratory distress syndrome): Additional Data Confirmation of : no pulse, no respirations, no heart sounds and pupils fixed and dilated Family: contacted (Nursing attempting to contact brother to update.) Attending/PCP notified?: No Attending physician: Moiz Bob Was code activated?: No Autopsy requested?: No coat examiner notified?: No Organ bank notified?: No Advance directives: No Coding Level of Care Code D/C DAY MANAGEMENT <30 MINS Diagnoses Acute hypoxemic respiratory failure due to COVID-19 U07.1; J96.01 Pneumonia due to 2019-nCoV U07.1; J12.82 ARDS (adult respiratory distress syndrome) J80
--- NOTE | 2021-09-08 21:15 | Hospitalist Progress Note ---
Date of Service September 08, 2021 Assessment & Plan (1) Acute respiratory failure with hypoxia and hypercapnia: (2) Acute respiratory distress syndrome (ARDS) due to 2019 novel coronavirus: (3) Paroxysmal atrial fibrillation: (4) Pneumonia due to 2019-nCoV: (5) Morbid obesity: Plan: BMI 40 (6) Shock: (7) Staphylococcus aureus pneumonia: (8) Hypernatremia: (9) Hyperglycemia: (10) Transaminitis: Plan: Despite maximal medical efforts the patient's respiratory status has continued to worsen with refractory hypercapnea and hypoxia. Also with refractory shock despite escalating amounts of pressors. Patient was deemed not an ECMO candidate earlier in his stay after calls were placed to tertiary care. In light of multi-organ failure Dr Cardozo discussed comfort care measures with the patient's next of kin this afternoon. Pt was made comfort care earlier this evening and, as anticipated, passed rapidly yet peacefully. Admission and Anticipated Discharge Date Admission Date: August 30, 2021 Subjective events of last 24 hours noted pt on max vent settings per ARDSnet protocol and despite such remains hypoxic in the low 80s has been hypotensive with persistent shock despite escalating doses of levophed remains on high-doses steroids, paralytics, insulin drip, etc no improvement with multi-organ failure bedside visit NOT performed today Review of Systems Review of Systems: Unobtainable due to endotracheal tube and Unobtainable due to reduced consciousness Physical Exam Physical Exam: deferred Results & Data Results & Data ([facility]) Vital Signs (Past 12 Hours) Vital Signs Temp Pulse Resp BP Pulse Ox 09/08/21 16:15 94 H 33 H 09/08/21 16:00 41 C H 95 H 32 H 98/55 L 85 L 09/08/21 15:00 96 H 32 H 85 L 09/08/21 14:00 94 H 32 H 98/55 L 87 L 09/08/21 13:00 96 H 32 H 87 L 09/08/21 12:00 41.2 C H 92 H 26 H 88 L 09/08/21 11:25 88 33 H 88 L 09/08/21 11:00 90 32 H 89 L 09/08/21 10:00 41.2 C H 89 32 H 90 09/08/21 09:52 88/52 L Laboratory Results Laboratory Results - last 24 hr 12/07/1909/07/21 09/08/21 09:23 23:24 04:24 WBC RBC Hgb Hct MCV MCH MCHC RDW Std Deviation RDW Coeff of Scooby Plt Count MPV Absolute Nucleated RBC Nucleated RBC % (auto) Neutrophils % (Manual) Lymphocytes % (Manual) Reactive Lymphs % (Man) Metamyelocytes % (Man) Myelocytes % (Man) Neutrophils # (Manual) Total Absolute Neuts Lymphocytes # (Manual) Reactive Lymphs # Total Abs Lymphocytes Metamyelocytes # (Man) Myelocytes # (Manual) Blood Smear Review Sample Site Art Line POC pH 7.18 L* POC pCO2 90 H POC pO2 57 L POC HCO3 33 H POC Total CO2 36 H POC Base Excess 5.0 H POC ABG O2 Sat 79.0 L Marcelo Test NA O2 Delivery Device Ventilator POC O2 Rate 32 POC FiO2 100 Tidal Volume 350 PEEP 18 Sodium Potassium Chloride Carbon Dioxide Anion Gap BUN Creatinine Est Cr Clr Drug Dosing Est GFR ( Amer) Est GFR (Non-Af Amer) BUN/Creatinine Ratio Glucose POC Glucose 202 H Calcium Phosphorus Magnesium Bld Cult Staph aureus PCR Negative Blood Culture MRSA PCR Negative 09/08/21 09/08/21 09/08/21 04:48 04:48 04:49 WBC 16.55 H RBC 4.86 Hgb 15.2 Hct 49.8 MCV 102.5 H MCH 31.3 MCHC 30.5 L RDW Std Deviation 51.0 H RDW Coeff of Scooby 13.6 Plt Count 260 MPV 11.8 H Absolute Nucleated RBC 0.08 H Nucleated RBC % (auto) 0.5 Neutrophils % (Manual) 45.7 Lymphocytes % (Manual) 13.8 Reactive Lymphs % (Man) 26.7 Metamyelocytes % (Man) 4.3 Myelocytes % (Man) 9.5 Neutrophils # (Manual) 7.56 H Total Absolute Neuts 7.56 H Lymphocytes # (Manual) 2.28 Reactive Lymphs # 4.42 Total Abs Lymphocytes 6.70 H Metamyelocytes # (Man) 0.71 H Myelocytes # (Manual) 1.57 H Blood Smear Review Pending Sample Site POC pH POC pCO2 POC pO2 POC HCO3 POC Total CO2 POC Base Excess POC ABG O2 Sat Marcelo Test O2 Delivery Device POC O2 Rate POC FiO2 Tidal Volume PEEP Sodium 149 H Potassium 4.3 Chloride 116 H Carbon Dioxide 29 Anion Gap 4.0 BUN 69 H Creatinine 1.40 Est Cr Clr Drug Dosing 80.1 Est GFR ( Amer) 64.6 Est GFR (Non-Af Amer) 55.8 BUN/Creatinine Ratio 49.1 H Glucose 240 H POC Glucose 193 H Calcium 7.4 L D Phosphorus 3.2 Magnesium 2.4 Bld Cult Staph aureus PCR Blood Culture MRSA PCR 09/08/21 09/08/21 12:05 17:13 WBC RBC Hgb Hct MCV MCH MCHC RDW Std Deviation RDW Coeff of Scooby Plt Count MPV Absolute Nucleated RBC Nucleated RBC % (auto) Neutrophils % (Manual) Lymphocytes % (Manual) Reactive Lymphs % (Man) Metamyelocytes % (Man) Myelocytes % (Man) Neutrophils # (Manual) Total Absolute Neuts Lymphocytes # (Manual) Reactive Lymphs # Total Abs Lymphocytes Metamyelocytes # (Man) Myelocytes # (Manual) Blood Smear Review Sample Site POC pH POC pCO2 POC pO2 POC HCO3 POC Total CO2 POC Base Excess POC ABG O2 Sat Marcelo Test O2 Delivery Device POC O2 Rate POC FiO2 Tidal Volume PEEP Sodium Potassium Chloride Carbon Dioxide Anion Gap BUN Creatinine Est Cr Clr Drug Dosing Est GFR ( Amer) Est GFR (Non-Af Amer) BUN/Creatinine Ratio Glucose POC Glucose 227 H 309 H* Calcium Phosphorus Magnesium Bld Cult Staph aureus PCR Blood Culture MRSA PCR PG Care Time/CCT Total # of Minutes Spent Total Time Spent with Patient: Total time spent is greater than 50% in coordination of care (as documented) at patient's floor/unit and/or counseling patient: Coding Level of Care Code None Diagnoses Paroxysmal atrial fibrillation I48.0 Pneumonia due to 2019-nCoV U07.1; J12.82 Acute respiratory failure with hypoxia and hypercapnia J96.01; J96.02 Acute respiratory distress syndrome (ARDS) due to 2019 novel coronavirus U07.1; J80 Morbid obesity E66.01 Shock R57.9 Staphylococcus aureus pneumonia J15.211 Hypernatremia E87.0 Hyperglycemia R73.9 Transaminitis R74.01
[2021-09-09] MEDS ORDERED: VANCOMYCIN HCL 1,500 MG in SODIUM CHLORIDE 0.9% 500 ML IV SCH (02:00)
[2021-09-10] MEDS ORDERED: VANCOMYCIN TROUGH ONE (01:30)
[2021-09-12] MEDS ORDERED: dexAMETHasone 10 MG in SYRINGE 0 ML IV SCH (09:00)
--- NOTE | 2021-09-18 13:28 | Discharge Summary ---
Date of Service date of admission - August 30, 2021 date of - September 08, 2021 time of - 1930 Admission HPI Per Admitting Provider 56 yo male with no significant past medical history reports feeling flu symptoms after returning from Thanksgiving dinner. Patient reports that he has informed the guests of the dinner that he likely had COVID 19. Patient reports loss of taste and smell. Patient reports progressively getting more SOB. Discharge Data Consultations Skill Training Program Coordinator [facility] Cardiology Anesthesia Procedures Performed 1. intubation/mech ventilation 2. central line placement 3. arterial line Radiology - 1. Numerous chest x-rays 2. Bilateral lower extremity venous dopplers - negative for DVT 3. CTA chest IMPRESSION: 1. No evidence of pulmonary embolism. 2. Pneumopericardium and pneumomediastinum. Correlation for barotrauma is recommended in this intubated patient. 3. Reticular and consolidative opacities compatible with history of Covid pneumonia. 4. Echocardiogram - unable to visualize the left or right ventricle Hospital Course (1) Acute respiratory failure with hypoxia and hypercapnia: Following admission the patient was admitted to telemetry in the COVID unit He only was requiring a small amount of NC O2. Dexamethasone & Remdesivir therapies were started. The patient's respiratory status worsened, ultimately requiring high-flow NC, and then finally BIPAP. Despite BIPAP he had refractory hypoxia. On 09/03/2021 anesthesia & critical care were consulted and the patient was intubated. The same day the patient underwent CTA chest which showed severe COVID pneumonia along with pneumopericardium & pneumomediastinum. No PEs were seen. The patient continued on IV dexamethasone and antibiotics were initiated for staph aureus that grew from a respiratory culture. Hypoxia continued despite mechanical ventilation. Tertiary care centers were contacted to see if he was an ECMO candidate and unfortunately he was deemed not a candidate for such (and no ECHO beds were available either). In the 24 hours prior to his he developed worsening shock - likely due to severe sepsis - with escalating amounts of pressors. He also had refractory hypercapnea and hypoxia. In light of multi-organ failure Dr Willie Cardozo, gumming machine operator, discussed comfort care measures with the patient's next of kin. Patient was extubated from the vent, comfort care measures were initiated, and patient passed rapidly yet peacefully on the evening of 09/08/21. (2) Acute respiratory distress syndrome (ARDS) due to 2019 novel coronavirus: (3) Pneumonia due to 2019-nCoV: (4) Paroxysmal atrial fibrillation: converted to NSR with IV amiodarone (5) Morbid obesity: BMI 40 (6) Shock: 2nd to sepsis (7) Staphylococcus aureus pneumonia: (8) Hypernatremia: (9) Hyperglycemia: (10) Transaminitis: 2nd to COVID-19 infection (11) Sepsis: 2nd to COVID-19 pneumonia & superimposed staph aureus pneumonia required pressors (levophed) in the days leading up to his Coding Level of Care Code D/C DAY MANAGEMENT <30 MINS Diagnoses Acute respiratory failure with hypoxia and hypercapnia J96.01; J96.02 Acute respiratory distress syndrome (ARDS) due to 2019 novel coronavirus U07.1; J80 Paroxysmal atrial fibrillation I48.0 Pneumonia due to 2019-nCoV U07.1; J12.82 Morbid obesity E66.01 Shock R57.9 Staphylococcus aureus pneumonia J15.211 Hypernatremia E87.0 Hyperglycemia R73.9 Transaminitis R74.01 Sepsis A41.9
== END 2021-09-08 19:30 | disposition expired | DRG 208 ==
LOC: ED 11:53 → SUATTDRO 23:38 → EDINP 23:38 → 2W 08-31 23:29 → 2E 09-02 11:05 → 1E 09-06 13:02